=== PATIENT | male | born 1950 | race Caucasian/White ===

== ENCOUNTER 2016-07-23 04:22 | Inpatient (IN) | payer MEDICARE ==
[2016-07-23] VITALS (21 sets, daily range): BP systolic 86–133; BP diastolic 51–72; PULSE 64–89; RESP 12–57; TEMP 96.1–98.4; O2SAT 90–98; Ht 177.8 cm; Wt 70.2 kg
[~2016-07-23] VITALS: Ht 177.8 cm; Wt 70.2 kg
[~2016-07-23 04:22] MED LIST: ALBU1.252 AEROSOL; ALBU6.7H INH; ASPI-1085 PO; CHOL100018 PO; CLOR7.5T5 PO; FOLI1TAB15 PO; LACO50TA2 PO; OLOD4MIS2 INH; PHEN100C12 PO; RANI150T7 PO; TIOT4MIS5 ORAL INH; [UNRECOGNIZED DRUG - CODE] PO; [UNRECOGNIZED DRUG - CODE] PO
--- OUTSIDE RECORDS SUMMARY | 2016-07-23 04:27 | XMS REPORT | Continuity of Care Document ---
Author Author [facility] Organization [facility] Address Unknown Phone Unavailable Support Name Relationship Address Phone DANIELLE MOFFETT MD Caregiver [address] [place] [address] [place] [phone] Unavailable LAISHA RICHTER Next Of Kin [address], [place] [id number] Insurance Providers Guarantor TeresaRishi Address [address] [place] [address] Email DENIED Payer Medicare Policy Number [id number] Subscriber's Name Rishi Richter Relationship 18 Self Chief Complaint and Reason for Visit Chief Complaint Fever Reason for Visit Elevated Dilantin level Fever Seizure Pharyngitis, acute Problems Past Problems Medical Problem Onset Date Elevated Dilantin level Unknown Fever Unknown Pharyngitis, acute Unknown Seizure Unknown Medications Current Home Medications Medication Dose Units Route Directions Days Qty Instructions Start Date Albuterol Sulfate 1.25 Mg/3 Ml Vial.neb 1 Vial Aerosol Tx. Every 4 Hours as needed for Prn Orders 02/09/16 Albuterol Sulfate (Proventil Hfa 90 Mcg/Actuation) 200 Puff/6.7 G Inha 2 Puff Inhalation Every 6 Hours as needed for Shortness Of Air/Wheezing 02/09/16 Aspirin (Aspirin Ec) 81 Mg Tablet. 81 Mg Oral Daily 02/09/16 Calcium Carbonate 650 Mg Tablet 650 Mg Oral Twice A Day 02/09/16 Cholecalciferol (Vitamin D3) 1,000 Unit Tablet 2,000 Unit Oral Daily 02/09/16 Clorazepate Dipotassium 7.5 Mg Tablet 30 Mg Oral Three Times A Day 02/09/16 Folic Acid 1 Mg Tablet 1 Mg Oral Daily 02/09/16 Lacosamide (Vimpat) 50 Mg Tablet 100 Mg Oral Twice A Day 02/09/16 Lactose-Free Food (Boost Plus) 237 Ml Liquid 237 Ml Oral Twice A Day 02/09/16 Olodaterol Hcl (Striverdi Respimat) 4 Gm Mist.inhal 2 Puff Inhalation Daily 02/09/16 Phenytoin Sodium Extended 100 Mg Capsule 200 Mg Oral Twice A Day 02/09/16 Ranitidine Hcl 150 Mg Tablet 150 Mg Oral Twice A Day as needed for Acid Reflux 02/09/16 Tiotropium Kaplan (Spiriva Respimat) 4 Gm Mist.inhal 2 Puff Oral Inhalation Daily 02/09/16 Social History Query Response Start Date Stop Date Smoking Status Former smoker Hospital Discharge Instructions No hospital discharge instructions. Plan of Care Discharge Date 02/09/16 2:40pm Disposition 01 DISCHARGED HOME, SELF-CARE Condition at Discharge Left Without Being Seen Instructions/Education Provided Sore Throat DI for Fever (Symptom) -- Adult Prescriptions See Medication Section Additional Instructions/Education Hold your Dilantin for next [address] Dixon via phone today for follow up and Dilantin dosing instructions. May go to [facility] clinic in [place]. Take OTC 600mg of ibuprofen every 6-8 hours or 650mg of tylenol every 4 hours for fever. Drink 8 glasses of water daily to stay hydrated. Follow treatment plan. Care Plan and Goals Physician Care Plan Problem: Fever, pharyngitis, Dilantin level too high, seizure Goal: Follow up with primary care provider Instructions: Take medications and follow care plan as discussed/written Functional Status No functional status results. Allergies, Adverse Reactions, Alerts No known allergies. Immunizations No immunization records. Vital Signs Acute Vital Signs Vital Response Date/Time Temperature (Fahrenheit) 98.9 deg F (96.8 - 99.1) 02/09/2016 12:45pm Temperature (Calculated Celsius) 37.55911 degrees C (36.0 - 37.3) 02/09/2016 12:45pm Pulse Rate (adult) 80 bpm (60 - 100) 02/09/2016 3:25pm Respiratory Rate 20 breaths/min (10 - 20) 02/09/2016 3:25pm O2 Sat by Pulse Oximetry 93 % (90 - 100) 02/09/2016 3:25pm Oxygen Flow Rate 2.00 L/min 02/09/2016 3:25pm Blood Pressure 97/62 mm Hg 02/09/2016 3:25pm Height (Feet) 5 feet 02/09/2016 11:15am Height (Inches) 10.00 inches 02/09/2016 11:15am Weight (Kilograms) 65.900 kg 02/09/2016 11:15am Body Mass Index (BMI) 20.0 02/09/2016 11:15am Results Laboratory Results Test Name Result Units Flags Reference Collection Date/Time Result Date/ Time Comments Phenytoin (Dilantin) Level 34.8 UG/ML *H 10-02/09/2016 1:26pm 2015 1:50pm Group A Streptococcus Screen NEGATIVE NEGATIVE 02/09/2016 1:11pm 10/2015 2:00pm Strep culture confirmation to follow Microbiology Results Procedure Source Organism/Result Collection Date/Time Result Date/Time Result Status Group A Streptococcus Culture Throat CULTURE INITIATED - RESULTS PENDING 2:00pm 02/09/2016 2:01pm Preliminary Procedures No known history of procedures. Encounters Encounter Location Arrival/Admit Date Discharge/Depart Date Attending Provider Departed Emergency Room [facility] 02/09/16 11:09am 02/09/16 2: 40pm DANIELLE MOFFETT MD Recent Diagnosis
[2016-07-23] MEDS ORDERED: ALBUTEROL/IPRATROPIUM INHAL. 2.5mg-0.5mg/3ml Neb. AEROSOL ONE ×2 (04:30→05:15)
--- NOTE | 2016-07-23 04:36 | ERPDOC ---
Departure Disposition Decision Date: Jul 23, 2016 Disposition Decision Time: 05:30 Disposition: 02 TO [facility] Impression Impression Impression: Primary Impression: COPD exacerbation Additional Impression: Respiratory failure Chronicity: acute on chronic Respiratory failure complication: hypoxia Qualified Codes: J96.21 - Acute and chronic respiratory failure with hypoxia Severity: Severe Condition: Improved Seen By: Physician only Problems/Meds/Labs Reviewed?: Yes Medications reviewed and manag: Yes Follow up care ordered?: Yes Mental Status: Alert Critical Care Note Total Time (mins): 40 Critical Care Spent: [id number] care of pt, Reviewing test results, Discuss the case w/staff, Documenting the MR, Discussion w/ family/DPOA During this visit the pt was: Critically Ill, At Risk of Deterioration HPI - Dyspnea General Chief Complaint: Dyspnea/Respdistress Stated Complaint: DYSPNEA Time Seen by Provider: 04:29 Source: patient, family, EMS Exam Limitations: no limitations HPI - Dyspnea Initial Comments Patient awoke from sleep one hour ago with severe dyspnea. Patient has a history of severe COPD, is oxygen-dependent at 3 L, and is noticed increased sputum production for the past week. Patient try to give himself a breathing treatment at home, wasn't successful so his called EMS. Patient was found to be hypoxemic at 86% on 3 L. Patient was increased to 6 L by mask in addition to his 3 L binasal cannula and given 2 albuterol treatments in route. Also given 125 mg IV, and seemed to improve dramatically. Patient has no local physician, and doctors at the [facility] in [place]. His requested that he be brought to [facility]. Occurred At: home Onset/Timing: Rapid Duration: 1 hr Severity: severe Activities at Onset: sleep Prior Episodes/Possible Cause: occasional episodes Associated Symptoms: cough, shortness of breath, DENIES: chest pain, diaphoresis, fever/chills, headaches, loss of appetite, malaise, nausea/vomiting , rash, seizure, syncope, weakness Aspirin Treatment Today: unknown Hx of Similar Symptoms: Yes Allergies: Coded Allergies: No Known Allergies (Unverified , 02/09/16) Past History Past Medical History Respiratory: COPD GI: GERD Neurological: seizures Surgical History General: other Family History Family PMH: FOUND: other Social History Smoking Status: Former smoker Does patient use chewing tobac: No Second Hand Exposure: No Substance Use Type: does not use Alcohol Intake: none Marital Status: Household Members: spouse Record Review Pertinent history updated: Yes Review of Systems Constitutional Constitutional: DENIES: appetite decrease, appetite increase, chills, dizziness , fever, weakness ENMT Ears: DENIES: pain Hearing: DENIES: hearing loss, tinnitus Balance: DENIES: vertigo Mouth/Throat: DENIES: change in swallowing, change in voice, hoarsness, painful swallowing, sore throat Cardiovascular Cardiac: DENIES: chest pain, dyspnea on exertion Rhythm/Rate: DENIES: irregular beat, palpitations, tachycardia Vascular: DENIES: pedal edema Pulmonary Respiratory: cough, dyspnea, sputum, DENIES: exposure to TB, hyperventilation, last PPD, pleuritic chest pain, pneumonia hx, recent risky activities, tachypnea GI Upper Abdomen: DENIES: dysphagia, heartburn/indigestion, nausea, pain, vomiting Lower Abdomen: DENIES: blood in stool, constipation, diarrhea, pain General: DENIES: burning, dysuria, frequency, pain, urgency Musculoskeletal General: DENIES: cramps, joint pain, joint swelling, pain, weakness Integumentary Skin: DENIES: rash, sores Neurological General: DENIES: headache, numbness, tingling, vertigo, weakness Psychiatric Psychiatric: DENIES: anxiety, depression, nervousness Physical Exam General General Nourishment: well nourished, well developed, appears stated age, thin Distress Description Patient appears in severe respiratory distress, but is able to answer questions. General Body Habitus: disheveled Vitals and Pain First Documented Vital Signs Date Time Temp Pulse Resp B/P Pulse Ox O2 Delivery O2 Flow Rate FiO2 07/23/16 04:24 97.2 87 26 126/72 100 Mask 10.00 Weight: Kilograms: Height (feet): 5 Height (inches): 10.00 Triage Pain Scale: RN VS reviewed by Provider: Yes Normal Exams: Head: Normocephalic w/o trauma Eyes: Pupils are PERRLA w/ EOMI, No scleral icterus, irritation, or foreign bodies noted ENMT: No facial trauma, nasal exudates, pharyngeal erythema, or exudates are noted Neck: Full range of motion, without adenopathy, JVD, bruits or thyromegaly Abdomen: Bowel sounds positive, soft, non-tender, non-distended, no hepatosplenomegaly, masses or bruits noted Lymphatic: No lymphadenopathy, or lymphedema noted Musculoskeletal: No tenderness, or deformity noted, good range of motion, all extremities Integumentary: No rashes, hives, or bruising noted, hair and nails, without abnormality Neurologic: Patient is alert, and oriented, cranial nerves, motor/sensory/ cerebellar, exams w/o gross deficits, to observation Psychiatric: Patient exhibits, appropriate attention, emotion and affect Respiratory (brief) Respiratory: FOUND: equal bilaterally, symmetrical, wheezes, NOT FOUND: clear all mccurdy (course tight wheezes bilaterally with poor air movement), rales, spasm, tenderness Cardiovascular (brief) Cardiac: FOUND: regular rate, regular rhythm, NOT FOUND: click, gallop, murmur , pedal edema Capillary Refill: <2 sec Pulses: all distal extremities, equal, strong Progress Results/Orders Orders Procedure Category Date Status Time Iv Lock (Ed Only) EDM 07/23/16 Transmitted 04:29 Cbc W/Auto LAB 07/23/16 Complete Diff-Reflex Manual Cmp - Comprehensive LAB 07/23/16 Complete Metabolic Lactate - Lactic Acid LAB 07/23/16 Complete Procalcitonin LAB 07/23/16 Complete 04:29 Chest 1 View RAD 07/23/16 Taken EKG EKG 07/23/16 Taken Troponin I W LAB 07/23/16 Complete Hemolysis Index Lactate - Lactic Acid LAB 07/23/16 Logged 08:59 Albuterol/Ipratropium PHA 07/23/16 Complete (Duoneb) 04:30 Albuterol/Ipratropium PHA 07/23/16 Complete (Duoneb) 05:15 Blood Gas, Arterial - LAB 07/23/[address] In Facility: ED ADM 07/23/16 Transmitted 05:15 Measure Vital Signs WOOD 07/23/16 In Process 05:15 Notify Adm Physician WOOD 07/23/16 In Process In Am 05:15 Place In Facility As: ADMIT 07/23/16 Transmitted 05:13 Blood Glucose [facility] 07/23/16 In Process Assessment Bgm 05:13 Measure Intake And WOOD 07/23/16 In Process Output 05:13 Elevate Hob WOOD 07/23/16 In Process Monitor Pulse Oximetry WOOD 07/23/16 In Process 05:13 Manage Oxygen WOOD 07/23/16 In Process Administration 05:13 Incentive Spirometry RT 07/23/16 Logged 05:13 Morphine Sulfate PHA 07/23/16 Logged (Morphine) 05:15 Enoxaparin (Lovenox) PHA 07/23/16 Logged 09:00 Rt Consult RT 07/23/16 Logged 05:13 Consistent Carb 2000 DIET 07/23/16 Transmitted Calories Breakfast Activity As Tolerated WOOD 07/23/16 In Process 05:13 Metoclopramide PHA 07/23/16 Logged (Reglan Inj) 05:15 Ondansetron Inj PHA 07/23/16 Logged (Zofran) 05:15 Promethazine PHA 07/23/16 Logged (Phenergan) 05:15 Oxygen, Continuous RT 07/23/16 Logged 05:13 Manage Incentive WOOD 07/23/16 In Process Spirometer 16:00 Methylprednisolone PHA 07/23/16 Logged Sod Succ (Solu-Medrol 11:00 Levofloxacin PHA 07/23/16 Logged (Levaquin 750 Mg 05:30 Albuterol Sulfate PHA 07/23/16 Logged (Proventil 2.5 Mg/3 Ml 05:30 Normal Saline (Normal PHA 07/23/16 Logged Saline Iv) 05:30 Lactate - Lactic Acid LAB 07/23/16 Logged 10:00 Lab Results Laboratory Tests Test 07/23/16 04:33 White Blood Count 7.2T/MM3 Red Blood Count 4.90M/MM3 Hemoglobin 15.2GM/DL Hematocrit 44.7% Mean Corpuscular Volume 91.2UM3 Mean Corpuscular Hemoglobin 31.0UUG Mean Corpuscular Hemoglobin Concent 34.0GM/DL RDW Standard Deviation 43.9FL Platelet Count 211T/MM3 Mean Platelet Volume 8.9UM3 Immature Granulocyte % (Auto) 0.4% Neutrophils (%) (Auto) 56.0% Lymphocytes (%) (Auto) 33.8% Monocytes (%) (Auto) 9.2% Eosinophils (%) (Auto) 0.0% Basophils (%) (Auto) 0.6% Absolute Immature Granulocyte (auto 0.03T/MM3 Absolute Neutrophils (auto) 4.0T/MM3 Absolute Lymphocytes (auto) 2.4T/MM3 Absolute Monocytes (auto) 0.7T/MM3 Absolute Eosinophils (auto) 0.0T/MM3 Absolute Basophils (auto) 0.0T/MM3 Turbidity < 20 Sodium Level 145MEQ/L Potassium Level 4.4MEQ/L Chloride Level 104MEQ/L Carbon Dioxide Level 34MEQ/L Anion Gap 7MEQ/L Blood Urea Nitrogen 14.0MG/DL Creatinine 0.8MG/DL Glomerular Filtration Rate Calc 98 BUN/Creatinine Ratio 18RATIO Glucose Level 106MG/DL Calculated Osmolality 280MOSM/KG Calcium Level 9.4MG/DL Total Bilirubin 0.50MG/DL Icterus Index < 2 Aspartate Amino Transf (AST/SGOT) 29U/L Alanine Aminotransferase (ALT/SGPT) 42U/L Alkaline Phosphatase 130U/L Troponin I < 0.012ng/ml Total Protein 7.4G/DL Albumin 4.1G/DL Globulin 3.3G/DL Albumin/Globulin Ratio 1.2RATIO Plasma Lactate 2.4MMOL/L Procalcitonin < 0.05NG/ML Chemistry Specimen Hemolysis < 15 Medications Current ED Medications Albuterol/ Ipratropium (Duoneb) 6 ml O ONCE AEROSOL Last administered on 04:59; Start 07/23/16 at 04:30; Stop 07/23/16 at 04:31; Status DC Albuterol/ Ipratropium (Duoneb) 6 ml O ONCE AEROSOL Last administered on 05:10; Start 07/23/16 at 05:15; Stop 07/23/16 at 05:16; Status DC Morphine Sulfate (Morphine) 1-2 MG Q2H PRN IV PAIN; Start 07/23/16 at 05:15; Status UNV Enoxaparin Sodium (Lovenox) 40 mg DAILY SQ ; Start 07/23/16 at 09:00; Status UNV Metoclopramide HCl (REGLAN Inj) 5 mg Q6H PRN IV NAUSEA; Start 07/23/16 at 05:15 ; Status UNV Ondansetron HCl (Zofran) 4 mg Q6H PRN IV NAUSEA; Start 07/23/16 at 05:15; Status UNV Promethazine HCl (Phenergan) 12.5 mg Q6H PRN IV NAUSEA; Start 07/23/16 at 05:15 ; Status UNV Methylprednisolone Sodium Succinate (Solu-Medrol) 125 mg Q6H IV ; Start at 11:00; Status UNV Levofloxacin (LEVAQUIN 750 mg tablet) 750 mg Q24H PO ; Start 07/23/16 at 05:30; Status UNV Albuterol Sulfate 7.5 mg 7.5 mg Q2H PRN AEROSOL ; Start 07/23/16 at 05:30; Status UNV Sodium Chloride (Normal Saline IV) 1,000 ml @ 150 mls/hr Q6H40M IV ; Start at 05:30; Status UNV Progress Progress EKG by EMS shows significant artifact, but no STEMI. Patient given 2 additional DuoNeb nebs and is oxygenating well, but still has pursed lip breathing and decreased air movement EKG - normal sinus rhythm without ischemia, ectopy, or infarction CBC - N CMP - N Chest x-ray - bilateral hyperinflation Lactate - mildly elevated 2.4, consistent with stented hypoxemia Pro calcitonin - Troponin - normal Patient is much improved, but continues to have decreased air movement and pursed lip breathing. Patient given additional 2 duonebs in the ER Pt is admitted to Dr. Zendejas, CCU, ABG drawn in ER. MOON SHINE MD Jul 23, 2016 04:36
[2016-07-23 04:44] LABS: BASOPHILS % (AUTO) 0.6 % (0-2); HCT - HEMATOCRIT 44.7 % (41-53); HGB - HEMOGLOBIN 15.2 GM/DL (13.5-17.5); IMMATURE GRANULOCYTE # (AUTO) 0.03 T/MM3 (0.00-0.03); IMMATURE GRANULOCYTE % (AUTO) 0.4 % (0.0-0.5); LYMPHOCYTES # (AUTO) 2.4 T/MM3 (1-4.8); LYMPHOCYTES % (AUTO) 33.8 % (23-45); MEAN CORPUSCULAR VOLUME 91.2 UM3 (80-100); MEAN PLATELET VOLUME 8.9 UM3 (9.4-12.4); MONOCYTES # (AUTO) 0.7 T/MM3 (0-0.8); MONOCYTES % (AUTO) 9.2 % (0-9.0); WBC - WHITE BLOOD COUNT 7.2 T/MM3 (4.5-11.0)
--- NOTE | 2016-07-23 04:50 | NUR ---
PORTABLE CHEST XRAY
[2016-07-23 04:51] LABS: LACTATE - LACTIC ACID 2.4 MMOL/L (0.6-2.2)
[2016-07-23 04:52] LABS: ALBUMIN 4.1 G/DL (3.5-5.0); ALBUMIN/GLOBULIN RATIO 1.2 RATIO (1.1-2.2); ALKALINE PHOSPHATASE 130 U/L (38-126); ALT (SGPT) 42 U/L (21-72); ANION GAP 7 MEQ/L (5-15); AST (SGOT) 29 U/L (17-59); BUN/CREATININE RATIO 18 RATIO (6-26); CALCIUM 9.4 MG/DL (8.4-10.2); CHLORIDE 104 MEQ/L (98-107); CO2 - CARBON DIOXIDE 34 MEQ/L (22-30); CREATININE 0.8 MG/DL (0.8-1.5); GLOMERULAR FILTRATION RATE 98; GLUCOSE 106 MG/DL (75-110); POTASSIUM 4.4 MEQ/L (3.6-5); SODIUM 145 MEQ/L (134-144); TOTAL PROTEIN 7.4 G/DL (6.3-8.2)
[2016-07-23] MEDS ORDERED: OLOD4MIS2 INH (05:08)
[2016-07-23] MEDS ORDERED: METOCLOPRAMIDE 10mg/2ml INJECTION IV PRN (05:15)
[2016-07-23] MEDS ORDERED: MORPHINE SULFATE 2 MG SYRINGE IV PRN (05:15)
[2016-07-23] MEDS ORDERED: ONDANSETRON 4mg/2ml INJECTION IV PRN (05:15)
[2016-07-23] MEDS ORDERED: PROMETHAZINE 25 MG INJECTION IV PRN (05:15)
[2016-07-23] MEDS ORDERED: ALBUTEROL INH.SOLN. 2.5mg/3ml (0.083%) Neb. AEROSOL PRN ×2 (05:30→11:00)
--- NOTE | 2016-07-23 05:40 | NUR ---
Admit Pt admitted to CCU4 at this time via cart, accompanied by ED RN, Raysa. Pt able to transfer self from cart to bed. Arrived on 3L O2/NC. IVL. Pt very talkative. Denies pain. Pursed lip breathing noted. at bedside. VSS.
--- NOTE | 2016-07-23 05:40 | NUR ---
ADMIT CCU PT TRANSFERRED TO CCU VIA CART ON 3L/NC. PT INDEPENDENTLY TRANSFERRED FROM CART TO BED - STAND-BY ASSIST ONLY. AT SIDE.
[2016-07-23] MEDS: NORMAL SALINE 1,000 ML IV SCH ×3 (05:50→23:12)
--- OUTSIDE RECORDS SUMMARY | 2016-07-23 05:52 | XMS REPORT | Referral Summary ---
Author Author [facility] Organization [facility] Address Unknown Phone Unavailable Care Team Providers Care It Quality Assurance Analyst Name Role Phone Kizzy Mcdowell Primary Care Physician [phone] Encounter [facility] [id number] Date(s): 04/08/15 - 04/08/[address] [facility] [address] [facility] [address] [place], [place] [address] Discharge Diagnosis: Localization-related symptomatic epilepsy and epileptic syndromes with complex partial seizures, intractable, without status epilepticus Discharge Diagnosis: Status post VNS (vagus nerve stimulator) placement Discharge Disposition: 01-Home or Self Care Attending Physician: Hai Dixon MD Admitting Physician: Hai Dixon MD Vital Signs No data available for this section Problem List Condition Effective Dates Status Health Status Informant COPD (chronic Active patient obstructive pulmonary disease)(Confirmed) Oxygen Active patient deficiency(Confirmed ) Seizures(Confirmed) Active patient Tobacco Active patient user(Confirmed) Allergies, Adverse Reactions, Alerts No Known Allergies Medications acetaminophen 325-650 mg, Oral, q4hr, Pain Moderate (4-6), 0 Refill(s) Start Date: 07/09/14 Status: Ordered albuterol 1.25 mg/3 mL (0.042%) inhalation solution 3 mL, NEB, q4hr, 0 Refill(s) Start Date: 07/08/14 Status: Ordered aspirin 81 mg oral tablet 81 mg 1 tabs, Oral, Daily, # 30 tabs, 0 Refill(s) Start Date: 04/08/15 Status: Ordered clorazepate 7.5 mg oral tablet See Instructions, Take 4 tablets three times daily, # 360 tabs, 0 Refill(s), other reason (Rx) Start Date: 04/08/15 Stop Date: 04/11/15 Status: Ordered folic acid 1 mg oral tablet 1 mg 1 tabs, Oral, Daily, # 30 tabs, 0 Refill(s) Start Date: 04/08/15 Status: Ordered Foradil Aerolizer 12 mcg inhalation capsule 1 caps, Inhalation, q12hr, # 60 caps, 0 Refill(s) Start Date: 07/08/14 Status: Ordered Home Oxygen (DME) DME Item 2 liters, See Instructions, 0 Refill(s), Supply Start Date: 07/08/14 Status: Ordered phenytoin 100 mg oral capsule, extended release See Instructions, Take 2 capsules twice daily, # 120 caps, 0 Refill(s), other reason (Rx) Start Date: 04/08/15 Status: Ordered Vitamin D with Minerals oral tablet 1 tabs, Oral, Daily, # 30 tabs, 0 Refill(s) Start Date: 04/08/15 Status: Ordered Results No data available for this section Immunizations No data available for this section Procedures Procedure Date Related Diagnosis Body Site Insertion Stimulator Vagus Nerve1 07/09/14 rods to brain to tack seizures VNS battery 1auto-populated from documented surgical case Social History Social History Type Response Smoking Status Former smoker; Number of years: 531 1quit smoking -2014. Assessment and Plan Extracted from: Title: Office Visit Note Author: Hai Dixon MD Date: 04/08/15 Assessment/Plan 1.Localization-related symptomatic epilepsy and epileptic syndromes with complex partial seizures, intractable, without status epilepticus 2.Status post VNS (vagus nerve stimulator) placement Orders: clorazepate, See Instructions, Take 4 tablets three times daily, # 360 tabs, 0 Refill(s), other reason (Rx) phenytoin, See Instructions, Take 2 capsules twice daily, # 120 caps, 0 Refill (s), other reason (Rx) I have reviewed about25 pages of outside record and the available diagnostic studies. I have also reviewed and discussed the diagnosis, pathophysiology and treatment plan with the patient and his . The patient is here to evaluate for recurrent seizure activities associated with loss of consciousness. Seizure activities associated with loss of consciousness can be associated with injury or high morbidities. Unfortunately , Mr. Muro continues to have monthly seizures despite the fact that he has been tried on numerous seizure medication and also VNS. For his seizure treatment, I would recommend start him on lacosamide (Vimpat) and titrate up to 100 mg bid. Please check EKG before initiating lacosamide to rule out P-R prolongation. Other options for seizure treatment would include zonisamide, perampanel or eslicarbazepine. Recently, he was found to have elevated clorazepate level. Unfortunately, the patient became psychotic and developed anxiety and panic attacks while being weaned off from clorazepate. It would appear he had similar experience in the past about 1 year ago when he ran out of clorazepate. It is possible now he has developed dependence on clorazepate so he would develop psychiatric symptoms when clorazepate was weaned. I would recommend a slow wean of clorazepate, eg take away 1 tablet of 7.5 mg every 1-2 months or even slower at a rate of 3.75 mg every 1-2 months if needed. If he continues to have problem with psychosis and anxiety, may need to bridge him with temporary antipsychotic medication (eg. Seroquel), can consider Psychiatry consult forassistance in the choice of alternative antipsychotic or anxiolytic medication. His VNS was interrogated today. No changes were made. Below is a summary of the setting: Model: 105 Implant date: July 09, 2014 Total On time: 2359 hours Normal mode: Output current:0.75 mA Signal frequency: 30 Hz Pulse width: 130 usec Signal on time: 7 seconds Signal off time: 0.3 minutes Magnet mode: Magnet current: 1 mA Magnet on time: 500 seconds Magnet pulse width: 30 usec System diagnostic mode was performed and all responses were correct: yes Battery near end of life: no Lead impedance: ok In addition to above, following issues were also discussed: - Seizure safety education regarding loss of consciousness. I have also informed the patient the possibility of injury from loss of consciousness during a seizure. - Patient was educated that he should not be driving until seizure free for 6 months - Potential adverse effects of medications were discussed I'll see him back for follow up in 3 months. Addendum The patient was approved by the [place] to see me for a total of 3 visits (1 new and 2 follow by yves Dixon) Hai Plummer MD on April 08, 2015 15:09:24 SERVICE TECH/WELDER Extracted from: Title: Ambulatory Patient Education Author: Hai Dixon MD Date: 04/08/15 [facility] Epilepsy People with epilepsy have times when they shake and jerk uncontrollably ( seizures). This happens when there is a sudden change in brain function. Epilepsy may have many possible causes. Anything that disturbs the normal pattern of brain cell activity can lead to seizures. HOME CARE Follow your doctor's instructions about driving and safety during normal activities. Get enough sleep. Only take medicine as told by your doctor. Avoid things that you know can cause you to have seizures (triggers). Write down when your seizures happen and what you remember about each seizure. Write down anything you think may have caused the seizure to happen. Tell the people you live and work with that you have seizures. Make sure they know how to help you. They should: Cushion your head and body. Turn you on your side. Not restrain you. Not place anything inside your mouth. Call for local emergency medical help if there is any question about what has happened. Keep all follow-up visits with your doctor. This is very important. GET HELP IF: You get an infection or start to feel sick. You may have more seizures when you are sick. You are having seizures more often. Your seizure pattern is changing. GET HELP RIGHT AWAY IF: A seizure does not stop after a few seconds or minutes. A seizure causes you to have trouble breathing. A seizure gives you a very bad headache. A seizure makes you unable to speak or use a part of your body. Document Released: 02/17/2010 Document Revised: 02/10/2014 Document Reviewed: [facility] Patient Information 2015 [employer], [facility]. This information is not intended to replace advice given to you by your health care provider. Make sure you discuss any questions you have with your health care provider. No follow up information was provided.
--- OUTSIDE RECORDS SUMMARY | 2016-07-23 05:52 | XMS REPORT | Continuity of Care Document ---
Author Author Formerly [facility] Address Unknown Phone Unavailable Support Name Relationship Address Phone LAURIE OLMSTEAD DO Caregiver [address] [place] [address] LAISHA SHABAZZ Next Of Kin [address] [address] Insurance Providers Payer Name Policy Number Subscriber Name Relationship Medicare A And B [id number] Rishi Shabazz 18 Self / Same As Patient For Life [id number] Rishi Shabazz 18 Self / Same As Patient Advance Directives Directive Response Recorded Date/Time Advanced Directives Not applicable 10/08/15 1:56pm Chief Complaint and Reason for Visit Chief Complaint Laceration Reason for Visit Foreign body of finger of left hand Problems Active Problems Medical Problem Onset Date Status Bronchitis Unknown Acute COPD exacerbation ~05/17/2014 Acute Elevated LFTs ~05/17/2014 Acute Foreign body of finger of left hand Unknown Acute Seizure Unknown Acute Seizure disorder Unknown Chronic Medications Current Home Medications Medication Dose Units Route Directions Days/Qty Instructions Start Date Tiotropium [place] 18 Mcg 18 Mcg RESPIRATORY (INHALATION) As Needed 05/17/14 Budesonide/Formoterol Fumarate 10.2 Gm 10.2 Gm RESPIRATORY (INHALATION) As Needed 05/17/14 Phenytoin Sodium Extended 100 Mg 100 Mg ORAL Four Times Daily Clorazepate Dipotassium 15 Mg 15 Mg ORAL Twice A Day 05/17/14 Albuterol Sulf 20 Ml 20 Ml Hand Held Nebulizer As Needed 05/17/14 Aspirin 81 Mg 81 Mg ORAL Daily 06/26/15 Folic Acid 1 Mg 1 Mg ORAL Daily 06/26/15 Cholecalciferol (Vitamin D3) 2,000 Unit 2,000 Unit ORAL Daily Calcium Carbonate 650 Mg 650 Mg ORAL Daily 06/26/15 Past Home Medications Medication Directions Ordered Status Bisacodyl 5 Mg Tablet.dr, 5 Mg Oral Daily 05/17/14 Discontinued Polyethylene Glycol 3350 17 Gm Powd.pack, 17 Gm Oral As Needed 05/17/14 Discontinued Prednisone 20 Mg Tablet, 20 Mg Oral Daily 05/17/14 Discontinued Levofloxacin 500 Mg Tab, 500 Mg G Tube Daily 05/17/14 Discontinued Methylprednisolone 21 Tab/Pkt Tablet, 21 Tab Oral As Directed 06/26/15 Discontinued Doxycycline Monohydrate 100 Mg Capsule, 100 Mg Oral Twice A Day 06/26/15 Discontinued Social History Query Response Start Date Stop Date Smoking Status Former smoker Hospital Discharge Instructions No hospital discharge instructions. Plan of Care Discharge Date 10/08/15 2:35pm Disposition 01 HOME OR SELF-CARE Condition at Discharge Stable Instructions/Education Provided Soft Tissue Foreign Body (ED) Prescriptions See Medication Section Additional Instructions/Education Keep the wounds clean and dry and covered with a bandage for a few days, and watch for signs of infection. See your doctor next week if not improving. Some of your test results may not be complete prior to your leaving the Emergency Department. The Emergency Department is not authorized to give test results over the phone. Please contact the doctor's office listed in this packet of information for your final results. Follow up with your primary care physician or return to the Emergency Department for worsening or worrisome symptoms. * Emergency Department phone number: [phone], x [phone] MEDICAL RECORD If you need copies of your X-rays, call [phone]. If you need copies of your medical record, including lab results, a signed authorization for release of records will be required. A telephone call for release of Health Information is not allowed. BILLING Billing can sometimes be confusing and frustrating. To help avoid confusion in the future, please take a moment to acquaint yourself with the billing parties for services. SERVICE BILLING CONSTITUTION PARTY Emergency Room Services [facility] Patients will receive bills for services from the appropriate provider. If you have any questions about your [facility] bill, our staff will be happy to assist you. Please call [phone], and ask for the billing department. THANK YOU for choosing [facility] as your emergency care provider! Care Plan and Goals ~~Discharge Care Plan~~ Problem: Laceration repaired Goal: Wound is closed with edges lined up, and will heal without redness, drainage or signs of infection. Instructions: Keep wound clean and dry. Apply antibiotic ointment as directed. Follow physician discharge instructions. Keep wound covered if working in an unclean environment. Wear gloves if working with food in a work environment. Functional Status No functional status results. Allergies, Adverse Reactions, Alerts No known allergies. Immunizations Name Given Type Status Date Influenza Vaccine Received if Current 02/03/15 Historical Historical Vital Signs Acute Vital Signs Vital Response Date/Time Temperature (Fahrenheit) 97.3 10/08/2015 2:35pm Pulse 78 bpm 10/08/2015 2:35pm Respirations 18 10/08/2015 2:35pm Height 5 ft 11 in Weight 149 lb Body Mass Index 20.0 kg/m^2 Results No known relevant diagnostic tests, laboratory data and/or discharge summary. Procedures No known history of procedures. Encounters Encounter Location Arrival/Admit Date Discharge/Depart Date Attending Provider Departed Emergency Room [facility] 10/08/15 1:41pm 10/08/15 2:35pm LAURIE OLMSTEAD DO Recent Diagnosis
--- OUTSIDE RECORDS SUMMARY | 2016-07-23 05:52 | XMS REPORT | Referral Summary ---
Author Author [facility] Organization [facility] Address Unknown Phone Unavailable Care Team Providers Care Extrusion Operator Name Role Phone Kizzy Mcdowell Primary Care Physician [phone] Encounter VC Date(s): 05/23/16 - 05/23/[address] [facility] [address] [facility] [address] [place], [place] [address] Discharge Diagnosis: Localization-related symptomatic epilepsy and epileptic syndromes with complex partial seizures, intractable, without status epilepticus Discharge Diagnosis: S/P placement of VNS (vagus nerve stimulation) device Discharge Disposition: 01-Home or Self Care Attending Physician: Hai Dixon MD Admitting Physician: Hai Dixon MD Vital Signs Most recent to 1 oldest [Reference Range]: Blood Pressure 110/68 mmHg [90-140/60-90 mmHg] (05/23/16 9:36 AM) Problem List Condition Effective Dates Status Health Status Informant COPD (chronic Active patient obstructive pulmonary disease)(Confirmed) Oxygen Active patient deficiency(Confirmed ) Localization-related Active symptomatic epilepsy and epileptic syndromes with complex partial seizures, intractable, without status epilepticus(Confirme d) Morbid Active patient obesity(Confirmed) S/P placement of VNS Active (vagus nerve stimulation) device(Confirmed) Tobacco Active patient user(Confirmed) Allergies, Adverse Reactions, [...] 7.5 mg oral tablet See Instructions, Take 3 tablets by mouth every morning, 3 tablets every afternoon and 3.5 tablets every evening., # 285 tabs, 1 Refill(s) Start Date: 05/23/16 Stop Date: 07/21/16 Status: Ordered folic acid 1 mg oral tablet 1 mg 1 tabs, Oral, Daily, # 30 tabs, 0 Refill(s) Start Date: 04/08/15 Status: Ordered Foradil Aerolizer 12 mcg inhalation capsule 1 caps, Inhalation, q12hr, # 60 caps, 0 Refill(s) Start Date: 07/08/14 Status: Ordered Home Oxygen (DME) DME Item 2 liters, See Instructions, 0 Refill(s), Supply Start Date: 07/08/14 Status: Ordered lacosamide 100 mg oral tablet 100 mg 1 tabs, Oral, BID, Take in conjunction with 50mg tablet twice daily., # 60 tabs, 5 Refill(s) Start Date: 01/25/16 Status: Ordered phenytoin 100 mg oral capsule, extended release See Instructions, Take 2 capsules twice daily, # 120 caps, 3 Refill(s) Start Date: 01/25/16 Status: Ordered Vitamin D with Minerals oral [...] Visit Note Author: Hai Dixon MD Date: 05/23/16 Assessment/Plan 1.Localization-related symptomatic epilepsy and epileptic syndromes with complex partial seizures, intractable, without status epilepticus - doing well, no seizure since last clinic visit -his clorazepate was still elevated, we will continue clorazepate taper. He is currently on clorazepate 7.5 mg tablets(3-3-4 tablets). We will go down to 3 - 3 - 3.5 tablets - continue phenytoin andVimpat at current dose - if he has recurrent seizures, we will increase Vimpat to 125 mg bid - hedoes not drive 2.S/P placement of VNS (vagus nerve stimulation) device VNS was interrogated today, no adjustment was made: Model: 105 Implant date: July 09, 2014 Total On time:5909 hours Normal mode: Output current:0.75 mA Signal frequency: 30 Hz Pulse width: 130 usec Signal on time: 7 seconds Signal off time: 0.3 minutes Magnet mode: Magnet current: 1 mA Magnet on time: 500 seconds Magnet pulse width: 30 usec System diagnostic mode was performed and all responses were correct: yes Battery near end of life: no Lead impedance: ok Follow up in 4 months.
--- OUTSIDE RECORDS SUMMARY | 2016-07-23 05:52 | XMS REPORT | Referral Summary ---
Author Organization Unknown Address Unknown Phone Unavailable Encounter VC Date(s): 07/09/14 - 07/09/14 [facility] [address] [place] [address] [phone] Discharge Disposition: Home or Self Care Attending Physician: Drew Vargas MD Admitting Physician: Drew Vargas MD Vital Signs Most recent to 1 oldest [Reference Range]: Temperature Skin 36.2 degC [36-37 degC] (07/09/14 1:05 PM) Peripheral Pulse 78 bpm Rate [60-100 bpm] (07/09/14 1:30 PM) Heart Rate Monitored 69 bpm [60-100 bpm] (07/09/14 1:00 PM) Respiratory Rate 16 br/min [14-20 br/min] (07/09/14 1:30 PM) Systolic Blood 94 mmHg Pressure [90-140 (07/09/14 1:30 PM) mmHg] Diastolic Blood 64 mmHg Pressure [60-90 (07/09/14 1:30 PM) mmHg] Mean Arterial 78 mmHg Pressure, Cuff (07/09/14 11:30 AM) Most recent to 1 oldest [Reference Range]: SpO2 96 % (07/09/14 1:30 PM) Problem List Condition Effective Dates Status Health [...] 0 Refill(s) Start Date: 07/08/14 Status: Ordered clorazepate 15 mg oral tablet 2 tablets, Oral, TID, 0 Refill(s) Start Date: 07/08/14 Status: Ordered Dilantin 100 mg oral capsule, extended release 3 caps, Oral, Bedtime (once a day), 0 Refill(s) Start Date: 07/08/14 Status: Ordered Dilantin 100 mg oral capsule, extended release 2 caps, Oral, BID, 2 TABLETS AM, 3 TABLETS PM, 0 Refill(s) Special Instructions: 2 TABLETS AM, 3 TABLETS PM Start Date: 07/08/14 Status: Ordered Foradil Aerolizer 12 mcg inhalation capsule 1 caps, Inhalation, q12hr, # 60 caps, 0 Refill(s) Start Date: 07/08/14 Status: Ordered Home Oxygen (DME) DME Item 2 liters, See Instructions, 0 Refill(s), Supply Special Instructions: 2 liters Start Date: 07/08/14 Status: Ordered Results Chemistry Most recent to 1 oldest [Reference Range]: Sodium Lvl [136-144 138 mEq/L mEq/L] (07/09/14 7:48 AM) Potassium Lvl 4.3 mEq/L [3.6-5.1 mEq/L] (07/09/14 7:48 AM) Chloride [99-109 100 mEq/L mEq/L] (07/09/14 7:48 AM) CO2 [22-32 mEq/L] 33 mEq/L *HI* (07/09/14 7:48 AM) AGAP [3-20] 5 (07/09/14 7:48 AM) BUN [4-20 mg/dL] 19 mg/dL (07/09/14 7:48 AM) Glucose Lvl [70-100 89 mg/dL mg/dL] (07/09/14 7:48 AM) Creatinine Lvl 0.78 mg/dL [0.64-1.27 mg/dL] (07/09/14 7:48 AM) eGFR [>60] >60 1 (07/09/14 7:48 AM) Calcium Lvl 8.7 mg/dL [8.6-10.0 mg/dL] (07/09/14 7:48 AM) Blood Glucose, 93 mg/dL Capillary [70-100 (07/09/14 7:01 AM) mg/dL] 1Result Comment: Multiply eGFR results by 1.21 for race. Immunizations No data available for this section Procedures Procedure Date Related Diagnosis Body Site Insertion Stimulator Vagus Nerve1 07/09/14 rods to brain to tack seizures VNS battery 1auto-populated from documented surgical case Social History Social History Type Response Smoking Status Former smoker; Number of years: 531 1quit smoking . Assessment and Plan No data available for this section
--- OUTSIDE RECORDS SUMMARY | 2016-07-23 05:52 | XMS REPORT | Referral Summary ---
Author Author [facility] Organization [facility] Address Unknown Phone Unavailable Care Team Providers Care Chemical Tester Name Role Phone Kizzy Mcdowell Primary Care Physician [phone] Encounter Date(s): 08/18/15 - 08/18/[address] [facility] [address] [facility] [address] [place], [place] [address] Discharge Diagnosis: Localization-related symptomatic epilepsy and epileptic syndromes with complex partial seizures, intractable, without status epilepticus Discharge Diagnosis: S/P placement of VNS (vagus nerve stimulation) device Discharge Disposition: 01-Home or Self Care Attending Physician: Hai Dixon MD Admitting Physician: Hai Dixon MD Vital Signs Most recent to 1 oldest [Reference Range]: Blood Pressure 146/68 mmHg [90-140/60-90 mmHg] *HI* (08/18/15 10:59 AM) Problem List Condition Effective Dates Status Health Status Informant COPD (chronic Active patient obstructive pulmonary disease)(Confirmed) Oxygen Active patient deficiency(Confirmed ) Localization-related Active symptomatic epilepsy and epileptic syndromes with complex partial seizures, intractable, without status epilepticus(Confirme d) S/P placement of VNS Active (vagus nerve [...] 0 Refill(s) Start Date: 04/08/15 Status: Ordered folic acid 1 mg oral [...] Visit Note Author: Hai Dixon MD Date: 08/18/15 Assessment/Plan 1.Localization-related symptomatic epilepsy and epileptic syndromes with complex partial seizures, intractable, without status epilepticus Doing well, only had one seizure since last appointment, which is much improved compared to before. Vimpat was started, currently taking 100 mg bid. Would recommend increase Vimpat to 125 mg bid given his recent seizure. Please also repeat another EKG to make sure there is no prolonged [place] interval. PCP can consider increasing Vimpat to 150 mg bid if he has additional seizure. Please continue phenytoin at current dose. Please continue clorazepate taper by 0.5 tablet per month. May consider psychiatry consult for temporary alternative anti-psychotic medicationif patient develops psychosis. Seizure safety education 2.S/P placement of VNS (vagus nerve stimulation) device VNS was interrogated today, no adjustment was made: VNS setting: Model: 105 Implant date: July 09, 2014 Total On time:3498 hours Normal mode: Output current:0.75 mA Signal frequency: 30 Hz Pulse width: 130 usec Signal on time: 7 seconds Signal off time: 0.3 minutes Magnet mode: Magnet current: 1 mA Magnet on time: 500 seconds Magnet pulse width: 30 usec System diagnostic mode was performed and all responses were correct: yes Battery near end of life: no Lead impedance: ok Follow up in 2-3 months.
--- OUTSIDE RECORDS SUMMARY | 2016-07-23 05:52 | XMS REPORT | Referral Summary ---
Author Author [facility] Organization [facility] Address Unknown Phone Unavailable Care Team Providers Care Aeronautical Research Engineer Name Role Phone Kizzy Mcdowell Primary Care Physician [phone] Encounter Date(s): 01/10/16 - 01/10/[address] [facility] [address] [facility] [address] [place], [place] [address] Discharge Diagnosis: Localization-related symptomatic epilepsy and epileptic syndromes with complex partial seizures, intractable, without status epilepticus Discharge Diagnosis: S/P placement of VNS (vagus nerve stimulation) device Discharge Disposition: 01-Home or Self Care Attending Physician: Hai Dixon MD Admitting Physician: Hai Dixon MD Vital Signs Most recent to 1 oldest [Reference Range]: Blood Pressure 130/80 mmHg [90-140/60-90 mmHg] (01/10/16 2:25 PM) Problem List Condition Effective Dates Status [...] tablet 100 mg 1 tabs, Oral, BID, # 60 tabs, 4 Refill(s) Start Date: 10/31/15 Status: Ordered phenytoin 100 mg oral capsule, extended release See Instructions, Take 2 capsules twice daily, # 120 caps, 0 Refill(s), other reason (Rx) Start Date: 04/08/15 Status: Ordered Vimpat 50 mg oral tablet See Instructions, Take 0.5 tablet twice a day, in conjuction with the 100 mg tablet, # 30 tabs, 0 Refill(s) Start Date: 01/10/16 Status: Ordered Vitamin D with Minerals oral tablet 1 tabs, Oral, Daily, # 30 tabs, 0 Refill(s) Start Date: 04/08/15 Status: Ordered Results Hematology Most recent to 1 oldest [Reference Range]: WBC [4.8-10.8 5.6 10*3/uL 10*3/uL] (01/10/16 3:49 PM) RBC [4.60-6.20] 4.96 (01/10/16 3:49 PM) Hgb [14.0-18.0 15.4 gm/dL gm/dL] (01/10/16 3:49 PM) Hct [42.0-52.0 %] 44.2 % (01/10/16 3:49 PM) MCV [82.0-99.0 fL] 89.1 fL (01/10/16 3:49 PM) MCH [27.0-32.0 pg] 31.0 pg (01/10/16 3:49 PM) MCHC [32.0-36.0 34.8 gm/dL gm/dL] (01/10/16 3:49 PM) RDW [11.5-14.5 %] 13.2 % (01/10/16 3:49 PM) Platelet [150-400 235 10*3/uL 10*3/uL] (01/10/16 3:49 PM) MPV [8.8-14.8 fL] 9.2 fL (01/10/16 3:49 PM) Chemistry Most recent to 1 oldest [Reference Range]: Sodium Lvl [135-144 140 mEq/L mEq/L] (01/10/16 3:49 PM) Potassium Lvl 4.5 mEq/L [3.5-5.2 mEq/L] (01/10/16 3:49 PM) Chloride [99-111 101 mEq/L mEq/L] (01/10/16 3:49 PM) CO2 [23-31 mEq/L] 33 mEq/L *HI* (01/10/16 3:49 PM) AGAP [3-20] 6 (01/10/16 3:49 PM) BUN [8-26 mg/dL] 17 mg/dL (01/10/16 3:49 PM) Glucose Lvl [70-99 66 mg/dL mg/dL] *LOW* (01/10/16 3:49 PM) Creatinine Lvl 0.82 mg/dL [0.72-1.25 mg/dL] (01/10/16 3:49 PM) eGFR [>60 mL/min] >60 mL/min 1 (01/10/16 3:49 PM) Calcium Lvl 9.4 mg/dL [8.9-10.5 mg/dL] (01/10/16 3:49 PM) Albumin Lvl [3.4-4.8 4.2 gm/dL gm/dL] (01/10/16 3:49 PM) Total Protein 7.0 gm/dL [6.0-7.6 gm/dL] (01/10/16 3:49 PM) ALT [0-55 U/L] 42 U/L (01/10/16 3:49 PM) AST [5-34 U/L] 32 U/L (01/10/16 3:49 PM) Alk Phos [40-150 124 U/L U/L] (01/10/16 3:49 PM) Bili Total [0.2-1.2 0.3 mg/dL mg/dL] (01/10/16 3:49 PM) Bili Direct [0.0-0.5 0.2 mg/dL mg/dL] (01/10/16 3:49 PM) Bili Indirect 0.1 mg/dL [0.0-1.0 mg/dL] (01/10/16 3:49 PM) 1Result Comment: Multiply eGFR results by 1.21 [...] Visit Note Author: Hai Dixon MD Date: 01/10/16 Assessment/Plan 1.Localization-related symptomatic epilepsy and epileptic syndromes with complex partial seizures, intractable, without status epilepticus - still has ongoing seizures - would recommend increasing Vimpat from 100 mg bid to 125 mg bid - would recommend continue phenytoin and clorazepate at current dose for now - will check clorazepate level since it was high in the past - will also check CBC, BMP, LFT since he is on seizure medication - I have discussed with the patient and family that it would be best if his PCP from the [facility] can write the prescription for his seizure medications. Recently, I received V[facility] the [facility]. I signed the form last week and they still haven't received the medication this week. It would be a lot easier for internal physician to write the prescription to avoid delay.Delaying in getting his seizure medications can potentially increase his risk of seizure recurrence and also possibly psychosis from clorazepate withdrawal. It is not ideal for outside physician to write prescription since we do not have access to the [facility] electronic medical system. The prescription will undergo several layers of [facility] authorization, which could delay care for the patient. Ordered: Basic Metabolic Panel CBC Hemogram Clorazepate Level-[place] Hepatic Function Panel 2.S/P placement of VNS (vagus nerve stimulation) device VNS was interrogated today, no adjustment was made: VNS setting: Model: 105 Implant date: July 09, 2014 Total On time:4752 hours Normal mode: Output current:0.75 mA Signal frequency: 30 Hz Pulse width: 130 usec Signal on time: 7 seconds Signal off time: 0.3 minutes Magnet mode: Magnet current: 1 mA Magnet on time: 500 seconds Magnet pulse width: 30 usec System diagnostic mode was performed and all responses were correct: yes Battery near end of life: no Lead impedance: ok Ordered: Basic Metabolic Panel CBC Hemogram Hepatic Function Panel Follow up in 3-4 months Addendum Clarification: currently, he is on clorazepate, 3 tablets in AM, 3 tablets in the by Zack, afternoon and 4 tablets in PM Hai Plummer MD on January 10, 2016 15:39:42 CDT
--- OUTSIDE RECORDS SUMMARY | 2016-07-23 05:52 | XMS REPORT | Continuity of Care Document ---
Author Author [facility] Organization [facility] Address Unknown Phone Unavailable Allergies Active Description Code Type Severity Reaction Onset Reported/Identified Relationship to Patient Clinical Status Yes No Known Allergies NKMA N/A N/A 07/08/2014 Yes No Known Drug Allergies [id number] Drug Allergy Unknown N/ A 10/08/2015 Medications Problems Date Dx Coded Attending Type Code Diagnosis Diagnosed By 05/17/2014 VENU POLK DO Ot 345.90 05/17/2014 VENU POLK DO Ot 491.21 05/17/2014 VENU POLK DO Ot 780.79 05/17/2014 VENU POLK DO Ot 790.6 06/26/2015 JULY WRIGHT MD P Ot G40.909 EPILEPSY, UNSP, NOT INTRACTABLE, WITHOUT 06/26/2015 JULY WRIGHT MD P Ot J44.9 CHRONIC OBSTRUCTIVE PULMONARY DISEASE , U 06/26/2015 JULY WRIGHT MD P Ot R56.9 UNSPECIFIED CONVULSIONS 06/26/2015 JULY WRIGHT MD P Ot Z79.899 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 06/26/2015 JULY WRIGHT MD P Ot Z87.891 PERSONAL HISTORY OF NICOTINE DEPENDENCE 07/28/2015 JULY WRIGHT MD P Ot G40.802 07/28/2015 JULY WRIGHT MD P Ot M54.2 07/28/2015 JULY WRIGHT MD P Ot R51 07/28/2015 JULY WRIGHT MD P Ot R53.1 08/19/2015 JULY WRIGHT MD P Ot G40.802 OTHER EPILEPSY, NOT INTRACTABLE, WITHOUT 08/19/2015 JULY WRIGHT MD P Ot M54.2 CERVICALGIA 08/19/2015 JULY WRIGHT MD P Ot R51 HEADACHE 08/19/2015 JULY WRIGHT MD P Ot R53.1 WEAKNESS 10/08/2015 MADISON DO, LAURIE Destini Ot S61.241A PNCTR W FOREIGN BODY OF L IDX FNGR W/ O D 10/08/2015 OLMSTEAD DO, LAURIE Georges Ot W21.89XA STRIKING AGAINST OR STRUCK BY [employer] SPORTS 10/08/2015 MADISON DO, LAURIE Destini Ot Y92.007 [place] OF [facility] NON-[facility] RESI 10/08/2015 OLMSTEAD DO, LAURIE Destini Ot Y93.89 ACTIVITY, OTHER SPECIFIED 10/13/2015 OLMSTEAD DO, LAURIE Georges Ot S61.241A PNCTR W FOREIGN BODY OF L IDX FNGR W/ O D 10/13/2015 OLMSTEAD DO, LAURIE Georges Ot W21.89XA STRIKING AGAINST OR STRUCK BY [employer] 10/13/2015 OLMSTEAD DO, LAURIE Georges Ot Y92.007 [place] Y[place] OF [facility] RESI 10/13/2015 MADISON DO, LAURIE Destini Ot Y93.89 ACTIVITY, OTHER SPECIFIED 10/15/2015 MADISON DO, LAURIE Destini Ot S61.241A PNCTR W FOREIGN BODY OF L IDX FNGR W/ O D 10/15/2015 MADISON DO, LAURIE Geroges Ot W21.89XA STRIKING AGAINST OR STRUCK BY [facility] [employer] 10/15/2015 M[place] DO, LAURIE Georges Ot Y92.007 [facility] 10/15/2015 OLMSTEAD DO, LAURIE Georges Ot Y93.89 ACTIVITY, OTHER SPECIFIED Procedures Results Test Result Range Clorazepate - 01/10/16 15:49 Clorazepate See Comment NA Encounters ACCT No. Visit Date/Time Discharge Status Pt. Type Provider Facility Loc./Unit Complaint [id number] 05/23/2016 08:48:00 2016 23:59:00 DIS Outpatient Hai Dixon [facility] N SF Epil Seizure Follow Up [id number] 01/10/2016 14:20:00 2015 23:59:00 DIS Outpatient Hai Dixon [facility] N [facility] Epil 3 MO FU [id number] 08/18/2015 10:42:00 2015 23:59:00 DIS Outpatient Hai Dixon [facility] N Epil follow up [id number] 04/08/2015 13:16:00 ACT Outpatient Hai Dixon [facility] N Epil SEIZURES
--- OUTSIDE RECORDS SUMMARY | 2016-07-23 05:52 | XMS REPORT | Continuity of Care Document ---
Author Author [facility] Organization [facility] Address Unknown Phone Unavailable Support Name Relationship Address Phone JAMTIMOTHYA Destini GARNER Caregiver [address] [place] [address] JULY WRIGHT MD Caregiver [address] [place] [address] LAISHA MURO Next Of Kin [address] [place] [address] Insurance Providers Payer Name Policy Number Subscriber Name Relationship Medicare A And B [id number] Rishi Muro 18 Self / Same As Patient For Life [id number] Rishi Muro 18 Self / Same As Patient Chief Complaint and Reason for Visit Chief Complaint Malaise Reason for Visit [id number] Seizure disorder [id number] Problems Medical Problems Problem Onset Date Status Elevated LFTs Unknown Active Seizure disorder Unknown Active COPD exacerbation Unknown Active Medications Medication Dose Route Sig Days/Qty Instructions Order Date Discontinued Date Status Tiotropium [place] 18 Mcg RESPIRATORY (INHALATION) NEEDED Active Budesonide/Formoterol Fumarate 10.2 Gm RESPIRATORY (INHALATION) NEEDED 05/17/14 Active Phenytoin Sodium Extended 100 Mg ORAL FOUR TIMES DAILY 05/17/14 Active Bisacodyl 5 Mg ORAL DAILY 05/17/14 Active Clorazepate Dipotassium 15 Mg ORAL TWICE A DAY 05/17/14 Active Albuterol Sulf 20 Ml HHN NEEDED 05/17/14 Active Polyethylene Glycol 3350 17 Gm ORAL NEEDED 05/17/14 Active Prednisone 20 Mg ORAL DAILY 5 Qty 05/17/14 Active Levofloxacin 500 Mg GT DAILY 10 Qty 05/17/14 Active Social History No social history. Hospital Discharge Instructions No hospital discharge instructions. Plan of Care Discharge Date 05/17/14 9:24pm Disposition 01 HOME OR SELF-CARE Condition at Discharge Stable Instructions/Education Provided Emphysema (ED) Prescriptions See Medications Section Additional Instructions/Education [facility] Return to ER as needed. Some of your test results may not [...] worrisome symptoms. * Emergency Department phone number: [phone], x [phone]* MEDICAL RECORD If you need copies of your X-rays, call [phone]. If you need copies of [...] the billing parties for services. SERVICE BILLING LIBERTARIAN Emergency Room Services [facility] Physician Services [facility] X-[facility] Patients will receive bills for services from the appropriate provider. If you have any questions about your [facility] bill, our staff will be happy to assist you. Please call [phone], and ask for the billing department. THANK YOU for choosing [facility] as your emergency care provider! Functional Status No functional status results. Allergies, Adverse Reactions, Alerts Allergen Type Severity Reaction Status Last Updated No Known Drug Allergies Active 05/17/14 Immunizations No immunization records. Vital Signs Acute Vital Signs Vital Response Date/Time Temperature (Fahrenheit) 98.0 Pulse 78 bpm Respirations 22 Height 5 ft 11 in Weight 155 lb Body Mass Index 21.0 kg/m^2 Results Test Source Date Result Interp. Ref. Range Comments Troponin I May 17, 2014 6:30pm < 0.012 ng/mL 0.010-0.080 Urine Collection Type May 17, 2014 8:15pm Clean catch Urine collection method Clean Catch Urine Leukocyte Esterase May 17, 2014 8:15pm Negative Negative Urine collection method Clean Catch Urine Urobilinogen May 17, 2014 8:15pm 0.2 mg/dL 0.2-1.0 Urine collection method Clean Catch Urine Bilirubin May 17, 2014 8:15pm Negative Negative Urine collection method Clean Catch Urine Nitrite May 17, 2014 8:15pm Negative Negative Urine collection method Clean Catch Urine Ketones May 17, 2014 8:15pm Negative Negative Urine collection method Clean Catch Urine Blood May 17, 2014 8:15pm Negative Negative Urine collection method Clean Catch Urine Glucose (UA) May 17, 2014 8:15pm Negative Negative Urine collection method Clean Catch Urine Protein May 17, 2014 8:15pm Negative Negative Urine collection method Clean Catch Urine Specific [place] May 17, 2014 8:15pm 1.015 1.005-1.030 Urine collection method Clean Catch Urine pH May 17, 2014 8:15pm 7.0 5.0 - 8.0 Urine collection method Clean Catch Urine Clarity May 17, 2014 8:15pm Slightly cloudy Urine collection method Clean Catch Urine Color May 17, 2014 8:15pm Yellow Urine collection method Clean Catch Albumin/Globulin Ratio May 17, 2014 6:30pm 1.354 N 1.1-1.8 Albumin May 17, 2014 6:30pm 4.2 G/DL N 3.4-5.0 Total Protein May 17, 2014 6:30pm 7.3 G/DL N 6.4-8.5 Alanine Aminotransferase (ALT/SGPT) May 17, 2014 6:30pm 93 U/L H 30- 65 Aspartate Amino Transf (AST/SGOT) May 17, 2014 6:30pm 57 U/L H 15- 37 Alkaline Phosphatase May 17, 2014 6:30pm 79 U/L N 38-126 Total Bilirubin May 17, 2014 6:30pm 0.1 MG/DL N 0.1-1.0 Calcium/Ionized Calcium Ratio May 17, 2014 6:30pm 4.1 mg/dL N 3.8- 4.6 Calcium Level May 17, 2014 6:30pm 9.4 MG/DL N 8.8-10.8 Calculated Osmolality May 17, 2014 6:30pm 275 MOSM/L L 280-300 Glucose Level May 17, 2014 6:30pm 98 mg/dL N 70-110 Estimated GFR (Non- May 17, 2014 6:30pm 129.5 Estimat Glomerular Filtration Rate May 17, 2014 6:30pm 156.7 BUN/Creatinine Ratio May 17, 2014 6:30pm 16 N 10-20 Creatinine May 17, 2014 6:30pm 0.63 mg/dL L 0.8-1.5 Blood Urea Nitrogen May 17, 2014 6:30pm 10 MG/DL N 7-18 Anion Gap May 17, 2014 6:30pm 13.5 MEQ/L N 3-15 Carbon Dioxide Level May 17, 2014 6:30pm 39 MMOL/L H 22-29 Chloride Level May 17, 2014 6:30pm 95 mmol/L L 98-108 Potassium Level May 17, 2014 6:30pm 4.2 mmol/L N 3.5-5.1 Sodium Level May 17, 2014 6:30pm 143 MMOL/L N 135-150 Whole Blood Lactic Acid May 17, 2014 6:30pm 1.0 mmol/L N 0.7-2.1 Basophils # (Auto) May 17, 2014 6:30pm 0.1 10^3uL Eosinophils # (Auto) May 17, 2014 6:30pm 0.0 10^3uL Monocytes # (Auto) May 17, 2014 6:30pm 0.9 X10^3 Lymphocytes # (Auto) May 17, 2014 6:30pm 2.5 X10^3 Neutrophils # (Auto) May 17, 2014 6:30pm 4.9 X10^3 Basophils (%) (Auto) May 17, 2014 6:30pm 1 % N 0-2 Eosinophils (%) (Auto) May 17, 2014 6:30pm 0 % N 0-4 Monocytes (%) (Auto) May 17, 2014 6:30pm 11 % N 3-11 Lymphocytes (%) (Auto) May 17, 2014 6:30pm 29 % N 20-46 Neutrophils (%) (Auto) May 17, 2014 6:30pm 59 % N 51-67 Mean Platelet Volume May 17, 2014 6:30pm 9.3 FL N 6.0-9.5 Platelet Count May 17, 2014 6:30pm 221 10^3uL N 150-450 Red Cell Distribution Width May 17, 2014 6:30pm 13.1 % N 11.8-15.6 Mean Corpuscular Hemoglobin Concent May 17, 2014 6:30pm 33.6 g/dL N 31.0-37.0 Mean Corpuscular Hemoglobin May 17, 2014 6:30pm 30.0 PG N 26.0-34.0 Mean Corpuscular Volume May 17, 2014 6:30pm 89 FL N 80-100 Hematocrit May 17, 2014 6:30pm 49.70 % N 39.00-50.00 Hemoglobin May 17, 2014 6:30pm 16.7 g/dL N 13.5-17.0 Red Blood Count May 17, 2014 6:30pm 5.56 10^6uL H 4.50-5.50 White Blood Count May 17, 2014 6:30pm 8.37 10^3uL N 4.0-11.0 Procedures No known history of procedures. Encounters Encounter Location Date/Time Departed Emergency Room [facility] 05/17/14 5:19pm Recent Diagnosis
[2016-07-23] MEDS: LEVOFLOXACIN 750 MG TABLET PO SCH (06:21)
[2016-07-23] MEDS ORDERED: RANITIDINE 150 MG TABLET PO PRN (06:30)
--- NOTE | 2016-07-23 06:33 | HPPDOC ---
NELA ZENDEJAS MD 07/23/16 0629: HPI - Adult Date DATE: 07/23/16 TIME: 06:25 General Chief Complaint: Increasingly short of air History of Present Illness very pleasant 64-year-old [place] [employer] which he was disabled, he is 100 % service disabled status and does get some of his care at [facility] [place]. He woke early this morning severely short of breath. He's had increasing production of sputum over the past 5-6 days. At baseline he typically uses 3 L of oxygen to sleep with. They called emergency services and he is satting 80% on room air. He was placed on 6 L and then on a facemask. He received Solu- Medrol and 2 nebulized bronchodilator treatments and Lasix. He was able to speak at all because of shortness of breath at their evaluation. Finally after the fourth treatment in the emergency room he is doing better. However he was still having some. He has improved from this. He has had increased phlegm in his throat and lungs, is found extremely hard to walk around because of shortness of breath. He denies any fever or denies any chest pain denies any increased swelling in his legs. He had tried some nebulized bronchodilators at home didn't help. He does have a wheelchair, and he is actually needed use of the past few days typically doesn't Past Medical History Past Medical History COPD, history of seizures, GERD Surgical History Patient's Surgical History: and some sort of implanted device that helps him with seizures, he is calling and defibrillator, was placed via [facility] in 2016. Current Medications Home Meds Reported Medications Olodaterol HCl (Striverdi Respimat) 4 Gm Mist.inhal, 2 PUFF INH DAILY 07/23/16 Tiotropium [place] (Spiriva Respimat) 4 Gm Mist.inhal, 2 PUFF ORAL INH DAILY 02/09/16 Ranitidine HCl (Ranitidine HCl) 150 Mg Tablet, 150 MG PO BID Y for ACID REFLUX 02/09/16 Phenytoin Sodium Extended (Phenytoin Sodium Extended) 100 Mg Capsule, 200 MG PO BID 02/09/16 Olodaterol HCl (Striverdi Respimat) 4 Gm Mist.inhal, 2 PUFF INH DAILY 02/09/16 Lactose-Free Food (Boost Plus) 237 Ml Liquid, 237 ML PO BID 02/09/16 Lacosamide (Vimpat) 50 Mg Tablet, 100 MG PO BID 02/09/16 Folic Acid (Folic Acid) 1 Mg Tablet, 1 MG PO DAILY 02/09/16 Clorazepate Dipotassium (Clorazepate Dipotassium) 7.5 Mg Tablet, 30 MG PO TID 02/09/16 Cholecalciferol (Vitamin D3) 1,000 Unit Tablet, 2000 UNIT PO DAILY 02/09/16 Calcium Carbonate (Calcium Carbonate) 650 Mg Tablet, 650 MG PO BID 02/09/16 Aspirin *EC* (Aspirin EC) 81 Mg Tablet.dr, 81 MG PO DAILY 02/09/16 Albuterol Sulfate (Albuterol Sulfate) 1.25 Mg/3 Ml Vial.neb, 1 VIAL AEROSOL Q4HR Y for PRN ORDERS 02/09/16 Albuterol Sulfate (Proventil HFA 90 mcg/actuation) 200 Puff/6.7 G Inha, 2 PUFF INH Q6H Y for SHORTNESS OF AIR/WHEEZING 02/09/16 Allergies: Coded Allergies: No Known Allergies (Unverified , 02/09/16) Family History Family History: nc basd on age Social History Smoking Status: Former smoker Does patient use chewing tobac: No Second Hand Exposure: No Substance Use Type: does not use Alcohol Intake: none Marital Status: Household Members: spouse Advance Directives: Yes DPOA for Healthcare Only (Lilliam Shabazz, ) Review of Systems All Other Systems All Other Systems: Reviewed (remainder of 10-point ROS Neg.) Physical Exam General General Nourishment: thin General Body Habitus: disheveled Vital Signs Vital Signs Date Time Temp Pulse Resp B/P Pulse Ox O2 Delivery O2 Flow Rate FiO2 07/23/16 06:00 89 24 07/23/16 05:40 97.2 112/60 96 Nasal Cannula 3.00 Height (Feet): 5 Height (Inches): 10.00 Eyes Brief: FOUND: EOMI, PERRL Respiratory Brief: FOUND: equal bilaterally, wheezes Cardiovascular (brief) Cardiac Brief: FOUND: regular rate, regular rhythm, NOT FOUND: pedal edema Abdomen (brief) Abdominal Brief: FOUND: BS normo active x4, soft, NOT FOUND: tender Neurologic RN Documented GCS Eye Opening: Verbal: Motor: Total: Psychiatric (brief) FOUND: alert, oriented Laboratory Laboratory Tests Test 07/23/16 04:33 07/23/16 05:30 07/23/16 06:02 White Blood Count 7.2T/MM3 Red Blood Count 4.90M/MM3 Hemoglobin 15.2GM/DL Hematocrit 44.7% Mean Corpuscular Volume 91.2UM3 Mean Corpuscular Hemoglobin 31.0UUG Mean Corpuscular Hemoglobin Concent 34.0GM/DL RDW Standard Deviation 43.9FL Platelet Count 211T/MM3 Mean Platelet Volume 8.9UM3 Immature Granulocyte % (Auto) 0.4% Neutrophils (%) (Auto) 56.0% Lymphocytes (%) (Auto) 33.8% Monocytes (%) (Auto) 9.2% Eosinophils (%) (Auto) 0.0% Basophils (%) (Auto) 0.6% Absolute Immature Granulocyte (auto 0.03T/MM3 Absolute Neutrophils (auto) 4.0T/MM3 Absolute Lymphocytes (auto) 2.4T/MM3 Absolute Monocytes (auto) 0.7T/MM3 Absolute Eosinophils (auto) 0.0T/MM3 Absolute Basophils (auto) 0.0T/MM3 Turbidity < 20 Sodium Level 145MEQ/L Potassium Level 4.4MEQ/L Chloride Level 104MEQ/L Carbon Dioxide Level 34MEQ/L Anion Gap 7MEQ/L Blood Urea Nitrogen 14.0MG/DL Creatinine 0.8MG/DL Glomerular Filtration Rate Calc 98 BUN/Creatinine Ratio 18RATIO Glucose Level 106MG/DL Calculated Osmolality 280MOSM/KG Calcium Level 9.4MG/DL Total Bilirubin 0.50MG/DL Icterus Index < 2 Aspartate Amino Transf (AST/SGOT) 29U/L Alanine Aminotransferase (ALT/SGPT) 42U/L Alkaline Phosphatase 130U/L Troponin I < 0.012ng/ml Total Protein 7.4G/DL Albumin 4.1G/DL Globulin 3.3G/DL Albumin/Globulin Ratio 1.2RATIO Plasma Lactate 2.4MMOL/L Procalcitonin < 0.05NG/ML Chemistry Specimen Hemolysis < 15 Arterial Blood pH 7.340 Arterial Blood Partial Pressure CO2 63MMHG Arterial Blood pO2 at Patient Temp 119MMHG Arterial Blood HCO3 34MEQ/L Arterial Blood Total CO2 35.9MEQ/L Arterial Blood Oxygen Saturation 98.0% Arterial Blood Base Excess 6.3MMOL/L Oxygen Delivery Method (LAB) Nasal cannula,liters Blood Gas Oxygen Liter Flow 3 Blood Gas Oxygen Percent Given Blood Gas Vent Rate Blood Gas Tidal Volume ML Glucometer 130mg/dL Assessment & Plan Problems: (1) Acute respiratory failure with hypoxemia Status: Acute Assessment & Plan: Secondary to COPD exacerbation. Steroids and antibiotics ordered as noted below. (2) Chronic hypercapnic respiratory failure Status: Chronic Assessment & Plan: his pH is normal at this time, appears to be compensating. (3) Acute exacerbation of chronic obstructive pulmonary disease (COPD) Status: Acute Assessment & Plan: ordered continued Solu-Medrol along with a dose of Levaquin. Nebulized bronchodilators, continue home T ectropion. (4) Elevated lactic acid level Status: Acute (5) Epilepsy Status: Chronic Assessment & Plan: Continue his home medications, Code Status Full Code Hospital Course Summary Disclaimer The hospital course summary below is not to be considered part of the above Progress Note. DORA YEAGER MD 07/23/16 1455: HPI - Adult General Chief Complaint: dyspnea History of Present Illness Mr. Shabazz is a 64-year-old male who describes increasing exertional dyspnea for a couple of months. He has known underlying COPD and is chronically managed on Spiriva and a LABA. Over the past week has had increased sputum production ( white) and rhinorrhea. No one else at home has been ill. 24 hours prior to hospitalization he described feeling hot and cold alternately but denies having fever. He awoke from sleep about 3 AM this morning acutely dyspneic and unable to breathe. He attempted to self administer breathing treatment with no relief and EMS was activated by his . When they arrived the patient was in a tripod position, pale, diaphoretic, and unable to speak. He was described as being in extreme respiratory distress with absent breath sounds. He was treated with 2 [id number]-sj-vham breathing treatments and 125 mg of Solu-Medrol prior to transfer her to the emergency room. Oxygen saturation was initially 86% on 3 L supplemental oxygen. Additional breathing treatments were administered in the emergency room and chest x-ray revealed no acute cardiopulmonary process and bilateral wheezing was described on examination. He was subsequently admitted for see his management of COPD exacerbation to the ICU. Patient reports increased use of rescue inhaler in the week prior to hospitalization. He denied preceding chest pain, palpitations, or edema. At the time of my evaluation in the ICU this morning he was breathing fairly comfortably in lying flat in bed. Past history, social history, family history, and review of systems as noted by Dr. Zendejas with the following additions: Patient reports having a brain surgery many years ago that was related to surgery seizures but can't identify the nature of the procedure otherwise. He underwent implantation of a cranial nerve stimulator pulse generator in July [address] Hai Dixon at [facility]. He discontinued tobacco in June 2015 after smoking 1-2 packs per day for 51 years. Father of unknown type of cancer. Comprehensive review of systems is negative outside of acute symptoms except patient reporting some minor tinnitus intermittently. Past Medical History Current Medications Home Meds Reported Medications Olodaterol HCl (Striverdi Respimat) 4 Gm Mist.inhal, 2 PUFF INH DAILY 07/23/16 Tiotropium [place] (Spiriva Respimat) 4 Gm Mist.inhal, 2 PUFF ORAL INH DAILY 02/09/16 Ranitidine HCl (Ranitidine HCl) 150 Mg Tablet, 150 MG PO BID Y for ACID REFLUX 02/09/16 Phenytoin Sodium Extended (Phenytoin Sodium Extended) 100 Mg Capsule, 200 MG PO BID 02/09/16 Olodaterol HCl (Striverdi Respimat) 4 Gm Mist.inhal, 2 PUFF INH DAILY 02/09/16 Lactose-Free Food (Boost Plus) 237 Ml Liquid, 237 ML PO BID 02/09/16 Lacosamide (Vimpat) 50 Mg Tablet, 100 MG PO BID 02/09/16 Folic Acid (Folic Acid) 1 Mg Tablet, 1 MG PO DAILY 02/09/16 Clorazepate Dipotassium (Clorazepate Dipotassium) 7.5 Mg Tablet, 30 MG PO TID 02/09/16 Cholecalciferol (Vitamin D3) 1,000 Unit Tablet, 2000 UNIT PO DAILY 02/09/16 Calcium Carbonate (Calcium Carbonate) 650 Mg Tablet, 650 MG PO BID 02/09/16 Aspirin *EC* (Aspirin EC) 81 Mg Tablet.dr, 81 MG PO DAILY 02/09/16 Albuterol Sulfate (Albuterol Sulfate) 1.25 Mg/3 Ml Vial.neb, 1 VIAL AEROSOL Q4HR Y for PRN ORDERS 02/09/16 Albuterol Sulfate (Proventil HFA 90 mcg/actuation) 200 Puff/6.7 G Inha, 2 PUFF INH Q6H Y for SHORTNESS OF AIR/WHEEZING 02/09/16 Allergies: Coded Allergies: No Known Allergies (Unverified , 02/09/16) Assessment & Plan Problems: (1) Acute and chronic respiratory failure with hypoxia Status: Acute (2) Acute exacerbation of chronic obstructive pulmonary disease (COPD) Status: Acute Assessment & Plan: ordered continued Solu-Medrol along with a dose of Levaquin. Nebulized bronchodilators, continue home T ectropion. (3) Elevated lactic acid level Status: Acute (4) Chronic hypercapnic respiratory failure Status: Chronic Assessment & Plan: his pH is normal at this time, appears to be compensating. (5) Epilepsy Status: Chronic Assessment & Plan: Continue his home medications, Assessment EXAM General-97.2, 112/60, 94% on 3 L this morning. Resting comfortably supine, NAD, alert HEENT-PERRLA, EOMI, conjunctiva clear, sclera anicteric, conjugate gaze, oropharynx clear, membranes slightly dry time of exam, neck supple without adenopathy Lungs-diminished breath sounds throughout, wheezing not present at time of exam , respirations nonlabored and patient speaking in sentences Cardiac-regular rhythm, S1-S2 Abd-soft, nontender, bowel sounds present Ext-without edema Skin-without rash Neuro-cranial nerves II through XII intact, motor tone and power normal, no tremors, sensation intact to light touch 4 extremities Psych-calm, cooperative Dr. Zendejas's note reviewed, patient interviewed and examined. Acute COPD exacerbation with hypoxia superimposed on chronic hypercarbic/ hypoxic respiratory failure. Clinically improving with treatment initiated in the emergency room and continued overnight. Continue IV steroids, breathing treatments, and Levaquin. Preceding cough and nasal symptoms for one week-respiratory viral panel to be obtained. Sputum culture to be obtained as well. Transfer out of ICU at this time. Plan/Intensity of Service Outpatient records reviewed regarding epilepsy, chest x-ray reviewed by myself, admission records and EMS report reviewed, laboratory data reviewed. Discussed with nursing. Hospital Course Summary Hospital Course Summary Acute COPD exacerbation with hypoxia superimposed on chronic hypercarbic/ hypoxic respiratory failure. Clinically improving with treatment initiated in the emergency room and continued overnight. Continue IV steroids, breathing treatments, and Levaquin. Preceding cough and nasal symptoms for one week-respiratory viral panel to be obtained. Sputum culture to be obtained as well. Transfer out of ICU at this time. NELA ZENDEJAS MD Jul 23, 2016 06:29 DORA YEAGER MD Jul 23, 2016 14:55
[2016-07-23] MEDS: TIOTROPIUM 18mcg/cap HANDIHALER ORAL INH SCH ×2 (07:33→19:08)
--- NOTE | 2016-07-23 08:05 | DI ---
Indication: ITS.REASON: severe dyspnea PROCEDURE: CHEST 1 VIEW: Encounter: Initial Comparison: None Findings: Severe emphysema and hyperinflation. No consolidative pneumonia, pleural effusion or pneumothorax. Heart size and mediastinal contours are within normal limits. Electronic stimulator type device projecting over the left upper chest. Impression: No acute cardiopulmonary disease. .
[2016-07-23] MEDS: ENOXAPARIN 40 MG/0.4 ML INJECTION SQ SCH (08:37)
[2016-07-23] MEDS ORDERED: OLODATEROL INH SCH (09:00)
[2016-07-23] MEDS ORDERED: OLODATEROL HCL INH SCH (09:00)
[2016-07-23] MEDS ORDERED: LACTOSE FREE FOOD PO SCH (09:00)
[2016-07-23] MEDS: CHOLECALCIFEROL 1,000 UNIT TABLET PO SCH (09:20)
[2016-07-23] MEDS: CALCIUM CARBONATE 600 MG TABLET PO SCH ×2 (09:20→20:53)
[2016-07-23] MEDS: FOLIC ACID 1 MG TABLET PO SCH (09:21)
[2016-07-23] MEDS: LACOSAMIDE 100 MG TABLET PO SCH ×2 (09:21→20:50)
[2016-07-23] MEDS: PHENYTOIN 100 MG PO SCH ×2 (09:22→20:53)
[2016-07-23] MEDS: ASPIRIN *EC* 81mg TABLET PO SCH (09:23)
[2016-07-23] MEDS: ALBUTEROL/IPRATROPIUM INHAL. 2.5mg-0.5mg/3ml Neb. AEROSOL SCH ×3 (11:02→20:34)
--- NOTE | 2016-07-23 15:00 | NUR ---
SUMMARY Patient has slept well between meals. Appetite good. Voids well per urinal. SOA w/ activity. Good sats on 3l/nc.
--- NOTE | 2016-07-23 17:10 | NUR ---
TRANSFER TO 137 PER W/C WITHOUT DIFFICULTY. WITH PT. ON O2 3L/NC, OXIMETRY, TELEMETRY.
--- NOTE | 2016-07-23 17:10 | NUR ---
TRANSFER TO MEDICAL VSS. 3L NC. PATIENT SLIGHTLY SOA FROM TRANSFER. STAND PIVOT FROM CHAIR TO BED INDEPENDENTLY. NS INFUSING. PRESENT. PATIENT A&O X3.
[2016-07-23] MEDS ORDERED: CLOR7.5T5 PO (17:41)
[2016-07-23] MEDS: CLORAZEPATE 7.5 MG PO SCH ×2 (17:54→23:11)
--- NOTE | 2016-07-23 17:55 | NUR ---
UNSCHEDULED CLORAZEPATE ADMINISTRATION PATIENT TAKES CLORAZEPATE TID AT HOME AND HAS NOT HAD ANY DOSES TODAY. PATIENT WILL RECEIVE ONE DOSE LATER THIS EVENING (2300) BUT WANTS TO TAKE HIS AFTERNOON DOSE NOW. 3 TABLETS GIVEN PER ORDERS.
--- NOTE | 2016-07-23 19:19 | NUR ---
SHIFT SUMMARY VSS. 3L NC. DENIES PAIN. GOOD APPETITE. NS INFUSING AT 75CC/HR. IN ROOM. DENIES SOA WHILE IN BED. CONTINUES TO BE SOA WITH ACTIVITY.
[2016-07-23] MEDS ORDERED: CLORAZEPATE 7.5 MG PO SCH (21:00)
[2016-07-24] VITALS (12 sets, daily range): BP systolic 106–136; BP diastolic 68–78; PULSE 75–82; RESP 16–24; TEMP 97.7–98.3; O2SAT 88–96
[2016-07-24 04:53] LABS: HCT - HEMATOCRIT 39.4 % (41-53); HGB - HEMOGLOBIN 13.4 GM/DL (13.5-17.5); MEAN CORPUSCULAR VOLUME 91.2 UM3 (80-100); MEAN PLATELET VOLUME 9.2 UM3 (9.4-12.4); RED BLOOD COUNT 4.32 M/MM3 (4.50-5.90); WBC - WHITE BLOOD COUNT 7.7 T/MM3 (4.5-11.0)
[2016-07-24 05:12] LABS: ALBUMIN 3.4 G/DL (3.5-5.0); ANION GAP 5 MEQ/L (5-15); BUN/CREATININE RATIO 21 RATIO (6-26); CALCIUM 9.1 MG/DL (8.4-10.2); CHLORIDE 106 MEQ/L (98-107); CO2 - CARBON DIOXIDE 31 MEQ/L (22-30); CREATININE 0.8 MG/DL (0.8-1.5); GLOMERULAR FILTRATION RATE 98; GLUCOSE 149 MG/DL (75-110); PHOSPHORUS 3.2 MG/DL (2.5-4.5); POTASSIUM 4.2 MEQ/L (3.6-5); SODIUM 142 MEQ/L (134-144)
[2016-07-24] MEDS: LEVOFLOXACIN 750 MG TABLET PO SCH (05:22)
--- NOTE | 2016-07-24 06:11 | NUR ---
summary PT SLEEPING AT THE MOMENT. HAS BEEN UP SEVERAL TIMES TO USE THE BATHROOM. PT IS ONE PERSON ASSIST WITH AMBULATION. PT HAS SOB WITH AMBULATION AND COUGHS A LOT. DENIED ANY PAIN. EDUCATED ABOUT CALL LIGHT USE AND PT SAFETY. PT IS ALERT AND ORIENTED. ON O2 VIA NASAL CANULA. TOLERATING IV FLUIDS WELL.
[2016-07-24 06:51] LABS: LYMPHOCYTES # (MANUAL) 1.5 T/MM3 (1-4.8); NEUTROPHILS #(MANUAL)-ABSOLUTE 6.2 T/MM3 (1.8-7.7); TOTAL CELLS COUNTED 100 %
[2016-07-24] MEDS: ALBUTEROL/IPRATROPIUM INHAL. 2.5mg-0.5mg/3ml Neb. AEROSOL SCH ×4 (07:05→19:50)
[2016-07-24] MEDS: CLORAZEPATE 7.5 MG PO SCH ×3 (09:00→21:00)
[2016-07-24] MEDS: ASPIRIN *EC* 81mg TABLET PO SCH (09:39)
[2016-07-24] MEDS: CHOLECALCIFEROL 1,000 UNIT TABLET PO SCH (09:39)
[2016-07-24] MEDS: LACOSAMIDE 100 MG TABLET PO SCH ×2 (09:39→21:36)
[2016-07-24] MEDS: ENOXAPARIN 40 MG/0.4 ML INJECTION SQ SCH (09:39)
[2016-07-24] MEDS: PHENYTOIN 100 MG PO SCH ×2 (09:39→21:35)
[2016-07-24] MEDS: FOLIC ACID 1 MG TABLET PO SCH (09:39)
[2016-07-24] MEDS: CALCIUM CARBONATE 600 MG TABLET PO SCH ×2 (09:39→21:35)
--- NOTE | 2016-07-24 10:28 | NUR ---
CM IN TO VISIT PATIENT, HE IS A&O. IS AT THE BEDSIDE. PATIENT PLANS TO RETURN HOME WHERE HE LIVES AT [facility] WITH HIS . STATES THAT SHE IS HIS PRIMARY CAREGIVER AND [facility] IN THE HOME WITH BATHING. PATIENT HAS HOME OXYGEN NOW THROUGH [facility] C[facility], PHONE NUMBER [phone]. AT THIS TIME THERE ISN'T ANY DISCHARGE NEEDS TO BE COORDINATED. CM CONTACT INFORMATION GIVEN. Addendum: 07/24/16 at 1032 by PETRONA GARRETT RN Amended: Links added.
--- NOTE | 2016-07-24 10:33 | NUR ---
CM LACE SCORE IS 10 OF TODAY, WILL FOLLOW.
[2016-07-24] MEDS: TIOTROPIUM 18mcg/cap HANDIHALER ORAL INH SCH (11:56)
[2016-07-24] MEDS ORDERED: INSULIN LISPRO 100 UNIT/ML SQ PRN (12:30)
--- NOTE | 2016-07-24 12:31 | PNPDOC ---
ATIF MAN 07/24/16 1216: Subjective Date DATE: 07/24/16 TIME: 12:08 Subjective Mr. Shabazz is seen today in follow up for his COPD exacerbation. He is seen in his room while finishing a breathing treatment. He is able to speak in complete sentences and reports that he is feeling much better. He admits to continued dyspnea with exertion such as ambulation to the bathroom but denies any dyspnea at rest. He remains on 4L NC with a pulse ox at 95% - baseline home oxygen at 2L at rest and 3L with exertion. He denies any pain, chest pain , abdominal pain, nausea, vomiting or dysuria but does state that he does not like "all the shots" referring to the start of his IV and his Lovenox injections. His appetite is good though he admits he is not a big fan of the hospital food. He has not had a BM since admission but relates that to not eating as much as he is used to. Nursing notes were reviewed. Overall, he is feeling much better and making gains. On exam, he is sitting up in bed, finishing his breathing treatment. No cough or respiratory distress noted. He is able to speak in complete sentences without difficulty. Cardiac exam reveals regular rate and rhythm and lung sounds are diminished bilaterally without rhonchi or wheezing. Abdomen is soft , nontender with active bowel sounds. 2+ pedal pulses bilaterally without edema. N/V intact bilaterally. Labs today showed - WBC 7.7, new mild anemia with hemoglobin at 13.4, platelets 202. BMP unremarkable with sodium 142, potassium 4.2, CO2 improved at 31, BUN 17, SCr 0.8 and hyperglycemia at 149 - most likely secondary to steroid effect. Lactate trending down at 2.1 from 2.4 on admission. Sputum culture showed moderate gram + cocci and rods with few gram - cocci and rods and few WBC. Objective Vital Signs Vital signs Vital Signs Date Time Temp Pulse Resp B/P Pulse Ox O2 Delivery O2 Flow Rate FiO2 07/24/16 11:37 98.3 79 24 109/74 96 Nasal Cannula 4.00 Telemetry Rhythm: Sinus Rhythm Height (Feet): 5 Height (Inches): 10.00 Weight (Kilograms): 71.100 General General Appearance: Alert, Orientated x 3, Cooperative, No Acute Distress Eyes (Brief) Eyes: FOUND: PERRL, NOT FOUND: scleral icterus ENMT (Brief) ENMT: FOUND: mucosa moist Neck (Brief) Neck: FOUND: midline, NOT FOUND: nuchal rigidity, tracheal deviation Respiratory (Brief) Respiratory: FOUND: symmetrical, NOT FOUND: rales, wheezes Comments diminished bilaterally Cardiovascular (Brief) Cardiac: FOUND: regular rate, regular rhythm, NOT FOUND: pedal edema Comments diminished heart sounds Abdomen (Brief) Abdominal: FOUND: BS normo active x4, soft, NOT FOUND: distended, tender Extremities (Brief) Extremity : Side: Bilateral Extremity: leg Extremity Finding: NOT FOUND: deformity, edema Lymphatic (Brief) Lymphatic: NOT FOUND: lymphedema Musculoskeletal (Brief) Musculoskeletal: FOUND: extremities move equally, NOT FOUND: deformity, loss of motion Integumentary (Brief) Integumentary: FOUND: dry, pink, warm Comments afebrile Neurologic (Brief) Neurological: FOUND: cranial 2-12 intact, NOT FOUND: facial droop Psychiatric (Brief) Psychiatric: FOUND: alert, attentive, normal affect, oriented Comments very pleasant Laboratory Laboratory Laboratory Tests 07/23/16 04:33 07/24/16 04:19 Laboratory Tests 07/23/16 04:33 07/24/16 04:19 Microbiology Microbiology Microbiology Date/Time Source Procedure Growth Status 07/24/16 05:43 Sputum Expectorated Sputum Gram Stain - Final Resulted 07/24/16 05:43 Sputum Expectorated Sputum Sputum Culture - Preliminary CULTURE INITIATED - RESULTS PENDING Resulted Assessment & Plan Problems: (1) Acute and chronic respiratory failure with hypoxia Status: Acute (2) Acute exacerbation of chronic obstructive pulmonary disease (COPD) Status: Acute Assessment & Plan: ordered continued Solu-Medrol along with a dose of Levaquin. Nebulized bronchodilators, continue home T ectropion. (3) Elevated lactic acid level Status: Acute (4) Chronic hypercapnic respiratory failure Status: Chronic Assessment & Plan: his pH is normal at this time, appears to be compensating. (5) Epilepsy Status: Chronic Assessment & Plan: Continue his home medications, Plan/Intensity of Service 07/24/16: [place]. Assessment/Plan: Acute exacerbation of COPD and acute/chronic respiratory failure with hypoxia: * Overall, patient appears to be improving slowly. Persistent dyspnea with exertion. * Continue Levaquin for antimicrobial coverage of pulmonary pathogens. * Continue Solu-Medrol for pulmonary inflammation. May consider changing to oral prednisone as efficacy is similar. Will discuss with Dr. Edwards. * Continue breathing treatments for dyspnea. * Consider ambulatory pulse ox prior to discharge to ensure adequate oxygen supplementation at home. * Sputum culture - monitor sensitivities and adjust therapies as indicated. GRAM STAIN Final 07/24/16-814 RESULT MODERATE GRAM POSITIVE COCCI IN CLUSTERS MODERATE GRAM POSITIVE RODS FEW GRAM POSITIVE COCCI IN PAIRS FEW GRAM NEGATIVE RODS FEW GRAM NEGATIVE COCCI MODERATE EPITHELIAL CELLS FEW WHITE BLOOD CELLS Elevated lactic acid: * Trending down - 2.4 on admission - improved to 2.1 today. Chronic hypercapnic respiratory failure: * Continue to monitor closely. Epilepsy: * Continue home treatments and monitor closely for signs of seizures. Anemia: * New on 07/24/16 - mild with hemoglobin at 13.4. Patient asymptomatic. Continue to monitor closely. * Recheck CBC in AM to monitor blood counts. Hyperglycemia: * Most likely secondary to steroid effect. Monitor BGMs and sliding scale insulin as indicated. * Recheck BMP in AM to monitor electrolytes and renal function. Oxygen dependency-chronic: * Home base line use at 2L day/night and 3L with exertion. * Continue oxygen supplementation and wean to baseline as able. Code Status Full Code Hospital Course Summary Disclaimer The hospital course summary below is not to be considered part of the above Progress Note. Hospital Course Summary Acute COPD exacerbation with hypoxia superimposed on chronic hypercarbic/ hypoxic respiratory failure. Clinically improving with treatment initiated in the emergency room and continued overnight. Continue IV steroids, breathing treatments, and Levaquin. Preceding cough and nasal symptoms for one week-respiratory viral panel to be obtained. Sputum culture to be obtained as well. Transfer out of ICU at this time. 07/24/16: Lanre. Assessment/Plan: Acute exacerbation of COPD and acute/chronic respiratory failure with hypoxia: * Overall, patient appears to be improving slowly. Persistent dyspnea with exertion. * Continue Levaquin for antimicrobial coverage of pulmonary pathogens. * Continue Solu-Medrol for pulmonary inflammation. May consider changing to oral prednisone as efficacy is similar. Will discuss with Dr. Edwards. * Continue breathing treatments for dyspnea. * Consider ambulatory pulse ox prior to discharge to ensure adequate oxygen supplementation at home. * Sputum culture - monitor sensitivities and adjust therapies as indicated. GRAM STAIN Final 07/24/16-814 RESULT MODERATE GRAM POSITIVE COCCI IN CLUSTERS MODERATE GRAM POSITIVE RODS FEW GRAM POSITIVE COCCI IN PAIRS FEW GRAM NEGATIVE RODS FEW GRAM NEGATIVE COCCI MODERATE EPITHELIAL CELLS FEW WHITE BLOOD CELLS Elevated lactic acid: * Trending down - 2.4 on admission - improved to 2.1 today. Chronic hypercapnic respiratory failure: * Continue to monitor closely. Epilepsy: * Continue home treatments and monitor closely for signs of seizures. Anemia: * New on 07/24/16 - mild with hemoglobin at 13.4. Patient asymptomatic. Continue to monitor closely. * Recheck CBC in AM to monitor blood counts. Hyperglycemia: * Most likely secondary to steroid effect. Monitor BGMs and sliding scale insulin as indicated. * Recheck BMP in AM to monitor electrolytes and renal function. Oxygen dependency-chronic: * Home base line use at 2L day/night and 3L with exertion. * Continue oxygen supplementation and wean to baseline as able. DORA EDWARDS MD 07/24/16 6337: Assessment & Plan Assessment I have independently evaluated and examined this patient. I reviewed the chart, the patient's history, and the PA's documented findings as above. We discussed and formulated the assessment and plan as above with additions as below: Mr. Shabazz reports that his breathing has improved when he is resting but he continues to have exertional dyspnea. Walking to and from the bathroom is as far as he can go currently. His appetite is good. He told nurses earlier that he thought he might have a seizure and used his nerve stimulator to abort the event. The patient is alert and appears much more comfortable than he did yesterday. Air flow is good with coarse expiratory sounds throughout but no wheezing. Cardiac exam regular. Results of sputum culture noted. Continue current management, convert to oral steroids in the morning. PT/OT. Suspect patient would benefit from outpatient pulmonary rehabilitation if available in his home community. IV fluids discontinued due to patient complaints of polyuria, mild drop in hemoglobin consistent with hydration. Please note that lactic acid of 2.1 was yesterday morning. ATIF MAN Jul 24, 2016 12:16 DORA EDWARDS MD Jul 24, 2016 16:37
--- NOTE | 2016-07-24 14:50 | NUR ---
DWIGHTA PT REPORTED HAVING AN AURA AND USED HIS MAGNET, WHICH THEN RESOLVED HIS AURA. NOTIFIED DR. YEAGER. NO ORDERS RECEIVED.
--- NOTE | 2016-07-24 19:18 | NUR ---
STATUS WEANED O2 CHARTED. CONTINUES TO HAVE SOA THAT IS WORSE WITH EXERTION. AMBULATES WITH A STANDBY ASSIST, USES THE WALKER. NO PRN'S GIVEN TODAY. CALLS FOR NEEDS.
[2016-07-25] VITALS (9 sets, daily range): BP systolic 104–121; BP diastolic 65–80; PULSE 62–100; RESP 16–20; TEMP 96.7–98.4; O2SAT 92–95
[2016-07-25] MEDS: LEVOFLOXACIN 750 MG TABLET PO SCH (05:10)
[2016-07-25 05:24] LABS: HCT - HEMATOCRIT 38.4 % (41-53); HGB - HEMOGLOBIN 13.1 GM/DL (13.5-17.5); IMMATURE GRANULOCYTE # (AUTO) 0.06 T/MM3 (0.00-0.03); IMMATURE GRANULOCYTE % (AUTO) 0.6 % (0.0-0.5); LYMPHOCYTES # (AUTO) 1.3 T/MM3 (1-4.8); LYMPHOCYTES % (AUTO) 12.6 % (23-45); MEAN CORPUSCULAR HGB 31.2 UUG (26-34); MEAN CORPUSCULAR HGB CONC(MCHC 34.1 GM/DL (31-37); MEAN CORPUSCULAR VOLUME 91.4 UM3 (80-100); MEAN PLATELET VOLUME 9.5 UM3 (9.4-12.4); MONOCYTES # (AUTO) 0.4 T/MM3 (0-0.8); MONOCYTES % (AUTO) 3.6 % (0-9.0); NEUTROPHILS #(AUTO)-ABSOLUTE 8.5 T/MM3 (1.8-7.7); NEUTROPHILS % (AUTO) 83.2 % (33-66); WBC - WHITE BLOOD COUNT 10.3 T/MM3 (4.5-11.0)
[2016-07-25 05:35] LABS: ANION GAP 9 MEQ/L (5-15); BUN/CREATININE RATIO 30 RATIO (6-26); CALCIUM 9.4 MG/DL (8.4-10.2); CHLORIDE 104 MEQ/L (98-107); CO2 - CARBON DIOXIDE 31 MEQ/L (22-30); CREATININE 0.6 MG/DL (0.8-1.5); GLOMERULAR FILTRATION RATE 136; GLUCOSE 125 MG/DL (75-110); POTASSIUM 4.1 MEQ/L (3.6-5); SODIUM 144 MEQ/L (134-144)
--- NOTE | 2016-07-25 06:25 | NUR ---
SHIFT SUMMARY PT ALERT AND ORIENTED X3, VITAL SIGNS STABLE ON 3L02 VIA NC. PT DENIES C/P,N/V. SOA INCREASES DURING AMBULATION. PT HAS HAD ADEQUATE URINE OUTPUT. WILL CONTINUE TO MONITOR.
[2016-07-25] MEDS: ALBUTEROL/IPRATROPIUM INHAL. 2.5mg-0.5mg/3ml Neb. AEROSOL SCH ×4 (07:14→19:43)
[2016-07-25] MEDS: TIOTROPIUM 18mcg/cap HANDIHALER ORAL INH SCH (09:28)
[2016-07-25] MEDS: ENOXAPARIN 40 MG/0.4 ML INJECTION SQ SCH (10:05)
[2016-07-25] MEDS: CALCIUM CARBONATE 600 MG TABLET PO SCH ×2 (10:06→21:16)
[2016-07-25] MEDS: PredniSONE 10 MG TABLET PO SCH ×2 (10:06→18:01)
[2016-07-25] MEDS: CHOLECALCIFEROL 1,000 UNIT TABLET PO SCH (10:07)
[2016-07-25] MEDS: LACOSAMIDE 100 MG TABLET PO SCH ×2 (10:07→21:16)
[2016-07-25] MEDS: PHENYTOIN 100 MG PO SCH ×2 (10:07→18:01)
[2016-07-25] MEDS: FOLIC ACID 1 MG TABLET PO SCH (10:07)
[2016-07-25] MEDS: CLORAZEPATE 7.5 MG PO SCH ×3 (10:08→21:16)
[2016-07-25] MEDS: ASPIRIN *EC* 81mg TABLET PO SCH (10:08)
--- NOTE | 2016-07-25 10:20 | NUR ---
WAQAR CM VISITED PT, EXPLAINED ROLE AND PROVIDED CONTACT INFORMATION. PT PLANS TO RETURN HOME TO [facility]. PT IS NOT WILLING TO GO TO HEALTHCARE FOR ANY NEEDS. [facility]. PT DENIES NEEDS AT THIS TIME. PT IS AWARE TO CONTACT CM IF NEEDS [facility].
--- NOTE | 2016-07-25 13:39 | NUR ---
CM CM LEFT VM FOR PT SPOUSE TO DISCUSS D/C NEEDS. PT WILL NEED TO HAVE A CONCENTRATOR THAT GOES TO 6 LITERS PER RT. CM AWAITING RETURN CALL.
--- NOTE | 2016-07-25 14:52 | NUR ---
CM CM SPOKE WITH PT OVER THE PHONE. PT/SPOUSE HAVE DECIDED TO USE [facility]PS. LYSSA FROM NPS IS AWARE. PT CURRENT HOME CONCENTRATOR IS A 5 LITER-DR YEAGER WILL HAVE EXERCISE OXYGEN RE DONE WITH PT ON 2 LITERS NOT ROOM AIR. SPOUSE IS AWARE TO CONTACT CM IF NEEDS ARISE.
--- NOTE | 2016-07-25 16:57 | PNPDOC ---
Subjective Date DATE: 07/25/16 TIME: 16:39 Subjective Mr. Shabazz reports that his breathing feels good today. He continues to have exertional dyspnea which he reports is normal and become short of breath if he talks very much. He has nasal congestion night. Has nonproductive cough-also chronic. He denies chest pain, nausea, or lightheadedness. He had seizure auras 3 times yesterday/overnight which he managed using his neurostimulator. Urinary frequency improved after discontinuation of IV fluids. Objective Vital Signs Vital signs Vital Signs Date Time Temp Pulse Resp B/P Pulse Ox O2 Delivery O2 Flow Rate FiO2 07/25/16 16:10 78 2.00 07/25/16 15:35 98.2 18 104/69 94 Nasal Cannula EXAM General-NAD, alert, talkative without respiratory distress HEENT-conjunctiva clear, oropharynx clear Lungs-respirations nonlabored, good airflow, faint wheezing at the right base late expiration Cardiac-regular rhythm, S1-S2 Abd-soft, nontender, bowel sounds present Ext-without edema Psych-calm, cooperative Telemetry Rhythm: Sinus Rhythm Height (Feet): 5 Height (Inches): 10.00 Weight (Kilograms): 70.200 Laboratory Laboratory Laboratory Tests 07/24/16 04:19 07/25/16 03:51 Laboratory Tests 07/24/16 04:19 07/25/16 03:51 Microbiology Microbiology Microbiology Date/Time Source Procedure Growth Status 07/24/16 05:43 Sputum Expectorated Sputum Gram Stain - Final Resulted 07/24/16 05:43 Sputum Expectorated Sputum Sputum Culture - Preliminary CULTURE INITIATED - RESULTS PENDING Resulted Assessment & Plan Problems: (1) Acute and chronic respiratory failure with hypoxia Status: Acute (2) Acute exacerbation of chronic obstructive pulmonary disease (COPD) Status: Acute Assessment & Plan: ordered continued Solu-Medrol along with a dose of Levaquin. Nebulized bronchodilators, continue home T ectropion. (3) Elevated lactic acid level Status: Acute (4) Chronic hypercapnic respiratory failure Status: Chronic Assessment & Plan: his pH is normal at this time, appears to be compensating. (5) Epilepsy Status: Chronic Assessment & Plan: Continue his home medications, Assessment Clinically improved, oxygenating adequately on 2 L at rest. Ambulatory oximetry earlier today demonstrated significant hypoxia requiring 6 L oxygen to recover however ambulation initiated on room air. Oximetry repeated this afternoon on 2 L with saturation dropping to 87-88% requiring increased oxygen of 3 L to maintain saturation above 90% while walking. This is been the patient's standard supplemental oxygen prior to admission, 2 L at rest increasing to 3 L with activities. Converted to oral prednisone starting this morning. Sputum culture pending, on Levaquin orally-day 3. Mucinex initiated twice a day per patient request for chronic chest congestion/ secretions. Accu-Cheks discontinued, minimal hyperglycemia following conversion to oral steroids. MiraLAX started for chronic constipation. Epilepsy stable on home regimen. Doing well, anticipate discharge soon. Plan/Intensity of Service Laboratory data reviewed, discussed with case management, nursing, and respiratory therapy DVT Prophylaxis: SCD'S Code Status Full Code Hospital Course Summary Disclaimer The hospital course summary below is not to be considered part of the above Progress Note. Hospital Course Summary Acute COPD exacerbation with hypoxia superimposed on chronic hypercarbic/ hypoxic respiratory failure. Clinically improving with treatment initiated in the emergency room and continued overnight. Continue IV steroids, breathing treatments, and Levaquin. Preceding cough and nasal symptoms for one week-respiratory viral panel to be obtained. Sputum culture to be obtained as well. Transfer out of ICU at this time. 07/24/16: Lanre. Assessment/Plan: Acute exacerbation of COPD and acute/chronic respiratory failure with hypoxia: * Overall, patient appears to be improving slowly. Persistent dyspnea with exertion. * Continue Levaquin for antimicrobial coverage of pulmonary pathogens. * Continue Solu-Medrol for pulmonary inflammation. May consider changing to oral prednisone as efficacy is similar. Will discuss with Dr. Edwards. * Continue breathing treatments for dyspnea. * Consider ambulatory pulse ox prior to discharge to ensure adequate oxygen supplementation at home. * Sputum culture - monitor sensitivities and adjust therapies as indicated. GRAM STAIN Final 07/24/16-08 RESULT MODERATE GRAM POSITIVE COCCI IN CLUSTERS MODERATE GRAM POSITIVE RODS FEW GRAM POSITIVE COCCI IN PAIRS FEW GRAM NEGATIVE RODS FEW GRAM NEGATIVE COCCI MODERATE EPITHELIAL CELLS FEW WHITE BLOOD CELLS Elevated lactic acid: * Trending down - 2.4 on admission - improved to 2.1 today. Chronic hypercapnic respiratory failure: * Continue to monitor closely. Epilepsy: * Continue home treatments and monitor closely for signs of seizures. Anemia: * New on 07/24/16 - mild with hemoglobin at 13.4. Patient asymptomatic. Continue to monitor closely. * Recheck CBC in AM to monitor blood counts. Hyperglycemia: * Most likely secondary to steroid effect. Monitor BGMs and sliding scale insulin as indicated. * Recheck BMP in AM to monitor electrolytes and renal function. Oxygen dependency-chronic: * Home base line use at 2L day/night and 3L with exertion. * Continue oxygen supplementation and wean to baseline as able. 07/25 Clinically improved, oxygenating adequately on 2 L at rest. Ambulatory oximetry earlier today demonstrated significant hypoxia requiring 6 L oxygen to recover however ambulation initiated on room air. Oximetry repeated this afternoon on 2 L with saturation dropping to 87-88% requiring increased oxygen of 3 L to maintain saturation above 90% while walking. This is been the patient's standard supplemental oxygen prior to admission, 2 L at rest increasing to 3 L with activities. Converted to oral prednisone starting this morning. Sputum culture pending, on Levaquin orally-day 3. Mucinex initiated twice a day per patient request for chronic chest congestion/ secretions. Accu-Cheks discontinued, minimal hyperglycemia following conversion to oral steroids. MiraLAX started for chronic constipation. Epilepsy stable on home regimen. Doing well, anticipate discharge soon. DORA EDWARDS MD Jul 25, 2016 16:56
[2016-07-25] MEDS: POLYETHYL.GLYCOL 3350 PACKET 17gm PO SCH (18:01)
--- NOTE | 2016-07-25 18:52 | NUR ---
status Pt A/O x3, V/S stable on RA. Pt ambulating well in room with 1x assist. Did O2 ambulation and increased to 3L to maintain 90%, pt states this is his baseline at home. Pt denies pain at this time and no PRN meds given. Pt eating well, upset he is on a ADA diet and states he does not have DM2.
[2016-07-25] MEDS: GUAIFENESIN LA 600 MG TABLET PO SCH (21:17)
[2016-07-26] VITALS: BP 101/68; PULSE 71; RESP 20; TEMP 98.1; O2SAT 95
--- NOTE | 2016-07-26 04:11 | NUR ---
SHIFT SUMMARY PT A/O X3. UP WITH STAND BY ASSIST. PT MOVES FAST WHEN STANDING UP OUT OF BED. NOTED GAIT IS STEADY. ENCOURAGED PT TO SLOW DOWN AND LOOK FOR THE 02 TUBING WHEN WALKING. PT WAS PLEASANT WHEN VERBALIZED UNDERSTANDING. V.S. ARE WITHIN NORMAL LIMITS. DENIES CHEST PAIN OR SOA AT REST OR WITH ACTIVITIES. REQUESTED HIS HS MEDICATIONS TO BE GIVEN BETWEEN 21-2200. AT MID NIGHT PT STATES HE WAS NOT SLEEPING WELL. DENIES NEEDS OR DISCOMFORT. CALL LIGHT WITHIN REACH.
[2016-07-26] MEDS: LEVOFLOXACIN 750 MG TABLET PO SCH (05:45)
[2016-07-26 07:01] VITALS: O2SAT 94
[2016-07-26] MEDS: ALBUTEROL/IPRATROPIUM INHAL. 2.5mg-0.5mg/3ml Neb. AEROSOL SCH ×2 (07:01→11:33)
[2016-07-26 07:28] VITALS: BP 118/70; PULSE 74; RESP 20; TEMP 97.8; O2SAT 90
[2016-07-26] MEDS: PredniSONE 10 MG TABLET PO SCH ×2 (09:01→13:00)
[2016-07-26] MEDS: CHOLECALCIFEROL 1,000 UNIT TABLET PO SCH (09:01)
[2016-07-26] MEDS: PHENYTOIN 100 MG PO SCH (09:01)
[2016-07-26] MEDS: LACOSAMIDE 100 MG TABLET PO SCH (09:01)
[2016-07-26] MEDS: POLYETHYL.GLYCOL 3350 PACKET 17gm PO SCH (09:01)
[2016-07-26] MEDS: CLORAZEPATE 7.5 MG PO SCH (09:02)
[2016-07-26] MEDS: FOLIC ACID 1 MG TABLET PO SCH (09:02)
[2016-07-26] MEDS: GUAIFENESIN LA 600 MG TABLET PO SCH (09:02)
[2016-07-26] MEDS: ASPIRIN *EC* 81mg TABLET PO SCH (09:02)
[2016-07-26] MEDS: CALCIUM CARBONATE 600 MG TABLET PO SCH (09:02)
[2016-07-26] MEDS: ENOXAPARIN 40 MG/0.4 ML INJECTION SQ SCH (09:12)
[2016-07-26 09:50] VITALS: PULSE 74; RESP 20
[2016-07-26 11:33] VITALS: O2SAT 94
--- NOTE | 2016-07-26 11:34 | NUR ---
WAQAR ZAVALETA IN TO VISIT PATIENT, HE IS A&O. IS NOT IN ROOM AT THIS TIME. DR YEAGER PLANS TO DISCHARGE TODAY, HAD BEEN IN THE PROCESS OF SETTING UP [facility] AT [facility] OF ADMIT BUT PT HAS RECOMMENDED HH PT FOR STRENGTHENING. I SPOKE WITH PATIENT ABOUT [facility] AND HE WOULD LIKE TO VISIT WITH HIS BEFORE AGREEING TO SERVICES, THEY WILL CALL WHEN SHE COMES BACK. PATIENT ALSO WAS REQUESTING A 4 WHEELED WALKER WITH SEAT, HE WILL GET [facility]OUGH [facility] BUT DR YEAGER WROTE A RX TO ASSIST IN GETTING WALKER.
[2016-07-26] MEDS ORDERED: PRED20TA PO (11:45)
[2016-07-26] MEDS ORDERED: LEVO750T20 PO (11:45)
[2016-07-26] MEDS ORDERED: FLUT9.9S NAS (11:46)
--- NOTE | 2016-07-26 12:43 | NUR ---
CM PATIENT AND ARE IN AGREEMENT TO HAVE [facility] COM[facility] AT DISCHARGE, SHE WILL CONTINUE TO WORK WITH [facility] TO [facility] LATER. PRESCRIPTION GIVEN TO FOR THE 4 WHEELED WALKER, THEY WILL OBTAIN [facility]OUGH [facility].
[2016-07-26 12:44] VITALS: BP 120/63; PULSE 70; TEMP 96.4; O2SAT 93
--- NOTE | 2016-07-26 13:01 | NUR ---
DISMISSAL VSS. 2L NC. DISMISSAL PAPERWORK DISCUSSED WITH PT AND . VERBALIZED UNDERSTANDING. THREE SCRIPTS SENT WITH PT AND . PATIENT TAKEN TO FRONT ENTRANCE VIA WHEELCHAIR. TAKEN HOME VIA PERSONAL VEHICLE BY .
--- NOTE | 2016-07-26 14:12 | DSPDOC ---
General Date Date DATE: 07/26/16 TIME: 13:52 Attending Physician Kanika Ewdards MD Admitting Physician Kanika Edwards MD Consulting Physician Admitting Diagnosis acute hypoxic resp failure, acute exac COPD Discharge Diagnosis 1. Acute on chronic hypoxic and hypercarbic respiratory failure 2. Acute exacerbation COPD 3. Epilepsy 4. Bronchitis 5. Elevated lactic acid due to hypoxia 6. Steroid-induced hyperglycemia, resolved 7. Normocytic anemia, mild Procedures Ambulatory oximetry 07/25 demonstrated significant hypoxia requiring 6 L oxygen to recover however ambulation initiated on room air. Oximetry repeated later on 2 L demonstrated saturation dropping to 87-88% requiring increased oxygen of 3 L to maintain saturation above 90% while walking. This is been the patient's standard supplemental oxygen prior to admission, 2 L at rest increasing to 3 L with activities. Laboratory Laboratory Tests Test 07/25/16 03:51 07/25/16 05:17 07/25/16 11:14 White Blood Count 10.3T/MM3 (4.5-11.0) Red Blood Count 4.20M/MM3 (4.50-5.90) Hemoglobin 13.1GM/DL (13.5-17.5) Hematocrit 38.4% (41-53) Mean Corpuscular Volume 91.4UM3 (80-100) Mean Corpuscular Hemoglobin 31.2UUG (26-34) Mean Corpuscular Hemoglobin Concent 34.1GM/DL (31-37) RDW Standard Deviation 42.4FL (36.9-50.2) Platelet Count 224T/MM3 (130-400) Mean Platelet Volume 9.5UM3 (9.4-12.4) Immature Granulocyte % (Auto) 0.6% (0.0-0.5) Neutrophils (%) (Auto) 83.2% (33-66) Lymphocytes (%) (Auto) 12.6% (23-45) Monocytes (%) (Auto) 3.6% (0-9.0) Eosinophils (%) (Auto) 0.0% (0-4) Basophils (%) (Auto) 0.0% (0-2) Absolute Immature Granulocyte (auto 0.06T/MM3 (0.00-0.03) Absolute Neutrophils (auto) 8.5T/MM3 (1.8-7.7) Absolute Lymphocytes (auto) 1.3T/MM3 (1-4.8) Absolute Monocytes (auto) 0.4T/MM3 (0-0.8) Absolute Eosinophils (auto) 0.0T/MM3 (0-0.5) Absolute Basophils (auto) 0.0T/MM3 (0-0.2) Turbidity < 20 (0-20) Sodium Level 144MEQ/L (134-144) Potassium Level 4.1MEQ/L (3.6-5) Chloride Level 104MEQ/L (98-107) Carbon Dioxide Level 31MEQ/L (22-30) Anion Gap 9MEQ/L (5-15) Blood Urea Nitrogen 18.0MG/DL (9-20) Creatinine 0.6MG/DL (0.8-1.5) Glomerular Filtration Rate Calc 136 BUN/Creatinine Ratio 30RATIO (6-26) Glucose Level 125MG/DL (75-110) Calculated Osmolality 280MOSM/KG (261-280) Calcium Level 9.4MG/DL (8.4-10.2) Icterus Index < 2 (0-7) Chemistry Specimen Hemolysis < 15 (0-25) Glucometer 109mg/dL (75-110) 126mg/dL (75-110) On date of admission (07/23) white count 7.2, hemoglobin 15.2, bicarbonate 34, creatinine 0.8, liver enzymes normal except minor elevation of alkaline phosphatase patient 130. Initial lactic acid 2.4 and procalcitonin <0.05 ABG on admission 7.34/63/119/34 98% on 3L Microbiology Microbiology Date/Time Source Procedure Growth Status 07/24/16 05:43 Sputum Expectorated Sputum Gram Stain - MODERATE GRAM POSITIVE COCCI IN CLUSTERS MODERATE GRAM POSITIVE RODS FEW GRAM POSITIVE COCCI IN PAIRS FEW GRAM NEGATIVE RODS FEW GRAM NEGATIVE COCCI MODERATE EPITHELIAL CELLS FEW WHITE BLOOD CELLS Resulted 07/24/16 05:43 Sputum Expectorated Sputum Sputum Culture - Preliminary CULTURE INITIATED - RESULTS PENDING Resulted Respiratory viral panel negative Radiology Chest x-ray on admission demonstrated changes consistent with severe emphysema but no acute cardiopulmonary disease History of Present Illness Mr. Shabazz is a 64-year-old male who describes increasing exertional dyspnea for a couple of months. He has known underlying COPD and is chronically managed on Spiriva and a LABA. Over the past week has had increased sputum production ( white) and rhinorrhea. No one else at home has been ill. 24 hours prior to hospitalization he described feeling hot and cold alternately but denies having fever. He awoke from sleep about 3 AM this morning acutely dyspneic and unable to breathe. He attempted to self administer breathing treatment with no relief and EMS was activated by his . When they arrived the patient was in a tripod position, pale, diaphoretic, and unable to speak. He was described as being in extreme respiratory distress with absent breath sounds. He was treated with 2 [id number] breathing treatments and 125 mg of Solu-Medrol prior to transfer her to the emergency room. Oxygen saturation was initially 86% on 3 L supplemental oxygen. Additional breathing treatments were administered in the emergency room and chest x-ray revealed no acute cardiopulmonary process and bilateral wheezing was described on examination. He was subsequently admitted for see his management of COPD exacerbation to the ICU. Patient reports increased use of rescue inhaler in the week prior to hospitalization. He denied preceding chest pain, palpitations, or edema. At the time of my evaluation in the ICU this morning he was breathing fairly comfortably in lying flat in bed. Past history, social history, family history, and review of systems as noted by Dr. Zendejas with the following additions: Patient reports having a brain surgery many years ago that was related to surgery seizures but can't identify the nature of the procedure otherwise. He underwent implantation of a cranial nerve stimulator pulse generator in July [address] Hai Dixon at [facility]. He discontinued tobacco in June 2015 after smoking 1-2 packs per day for 51 years. Father of unknown type of cancer. Comprehensive review of systems is negative outside of acute symptoms except patient reporting some minor tinnitus intermittently. Hospital Course Mr. Shabazz was admitted to the intensive care unit with acute on chronic hypoxic respiratory failure with chronic hypercarbia. He was treated with high- dose IV steroids in conjunction with Levaquin and aggressive breathing treatments. Respiratory viral panel was negative and sputum suggested normal keyur although culture was pending at discharge. Symptoms stabilized relatively quickly and he was transferred out of the ICU within 24 hours. He converted to oral steroids on 07/25 and remained stable. He initially required 6 L of supplemental oxygen but titrated down to 2 L of oxygen at rest with 3 L with activities prior to discharge-this is been his standard oxygen demand previously. Mild hyperglycemia was present on IV steroids but subsided following conversion to prednisone. Further outpatient management of blood sugar is not needed. Following hydration hemoglobin dropped slightly suggesting dehydration on admission minor anemia was present with normocytic indices, further evaluation will be deferred to outpatient physician. The patient describes several auras typical of seizures which he managed with his neurostimulator. He complained of chronic nasal congestion for which nasal steroids were initiated. Mucinex was recommended for chest congestion as needed. On 07/26 the patient reported feeling at baseline. He continued to have some nasal congestion but denied sputum production or excess dyspnea. He was ambulating in the halls with minimal difficulty for short distances. He felt stable for discharge home. Respirations were nonlabored and breath sounds clear although diminished throughout. There was no wheezing this morning and no crackles present. Cardiac exam regular. Discharge medications reviewed with the patient and his . Stable for discharge. Follow-up with his managing physician at the [facility] is recommended within 1-2 weeks. Patient was provided with a prescription for four-wheel walker with a seat due to limited exertional tolerance due to advanced COPD. The patient additionally will have home health on return home to work on endurance and medical stabilization. >30 minutes spent on patient care and discharge care coordination today on the date of discharge. -- Problems: (1) Acute and chronic respiratory failure with hypoxia Status: Acute (2) Acute exacerbation of chronic obstructive pulmonary disease (COPD) Status: Acute Assessment & Plan: ordered continued Solu-Medrol along with a dose of Levaquin. Nebulized bronchodilators, continue home T ectropion. (3) Elevated lactic acid level Status: Acute (4) Chronic hypercapnic respiratory failure Status: Chronic Assessment & Plan: his pH is normal at this time, appears to be compensating. (5) Epilepsy Status: Chronic Assessment & Plan: Continue his home medications, (6) Bronchitis Status: Acute (7) Hyperglycemia Status: Resolved Assessment & Plan: Secondary to IV steroids (8) Normocytic anemia Status: Chronic Code Status Full Code Home Meds Active Scripts Fluticasone Propionate (Flonase Allergy Relief 50 mcg/actuation Nasal) 9.9 Ml [email or web address], 1 SPRAY MARTI DAILY for 30 Days Prov:KANIKA EDWARDS MD 07/26/16 Prednisone (Prednisone) 20 Mg Tablet, 40 MG PO WB for 5 Days, #10 TAB Take 2 (20 mg) tablets, by mouth, once a day with breakfast. Prov:KANIKA EDWARDS MD 07/26/16 Levofloxacin (Levaquin) 750 Mg Tablet, 750 MG PO Q24H, #1 TAB Prov:KANIKA EDWARDS MD 07/26/16 Reported Medications Clorazepate Dipotassium (Clorazepate Dipotassium) 7.5 Mg Tablet, 26.25 MG PO HS 07/23/16 Tiotropium [place] (Spiriva Respimat) 4 Gm Mist.inhal, 2 PUFF ORAL INH DAILY 02/09/16 Ranitidine HCl (Ranitidine HCl) 150 Mg Tablet, 150 MG PO BID Y for ACID REFLUX 02/09/16 Phenytoin Sodium Extended (Phenytoin Sodium Extended) 100 Mg Capsule, 200 MG PO BID 02/09/16 Olodaterol HCl (Striverdi Respimat) 4 Gm Mist.inhal, 2 PUFF INH DAILY 02/09/16 Lactose-Free Food (Boost Plus) 237 Ml Liquid, 237 ML PO BID 02/09/16 Lacosamide (Vimpat) 50 Mg Tablet, 100 MG PO BID 02/09/16 Folic Acid (Folic Acid) 1 Mg Tablet, 1 MG PO DAILY 02/09/16 Clorazepate Dipotassium (Clorazepate Dipotassium) 7.5 Mg Tablet, 22.5 MG PO [id number] 02/09/16 Cholecalciferol (Vitamin D3) 1,000 Unit Tablet, 2000 UNIT PO DAILY 02/09/16 Calcium Carbonate (Calcium Carbonate) 650 Mg Tablet, 650 MG PO BID 02/09/16 Aspirin *EC* (Aspirin EC) 81 Mg Tablet.dr, 81 MG PO DAILY 02/09/16 Albuterol Sulfate (Albuterol Sulfate) 1.25 Mg/3 Ml Vial.neb, 1 VIAL AEROSOL Q4HR Y for PRN ORDERS 02/09/16 Albuterol Sulfate (Proventil HFA 90 mcg/actuation) 200 Puff/6.7 G Inha, 2 PUFF INH Q6H Y for SHORTNESS OF AIR/WHEEZING 02/09/16 Discontinued Reported Medications Olodaterol HCl (Striverdi Respimat) 4 Gm Mist.inhal, 2 PUFF INH DAILY 07/23/16 Face to Face Encounter I met with patient on the day of dismissal and discussed follow up appointments , medications, and safety plan. Discharge Disposition Home with home health Documentation Requirements Documenting Diagnosis Anemia Anemia Anemia Acuity: Chronic KANIKA EDWARDS MD Jul 26, 2016 14:08
[2016-07-26] MEDS ORDERED: FLUTICASONE NASAL SPRAY 50 MCG EA NOSTRIL SCH (21:00)
== END 2016-07-26 14:08 | disposition home health service (06) | DRG 190 ==
LOC: ED 04:22 → CCU 05:15 → SRG 15:55 → MED 17:10
PROVIDERS: ADMIT Pediatrics; ATTEND Internal Medicine
DX: J44.1 Chronic obstructive pulmonary disease with (acute) exacerbation (principal); J96.01 Acute respiratory failure with hypoxia; J96.12 Chronic respiratory failure with hypercapnia; D64.9 Anemia, unspecified; J40 Bronchitis, not specified as acute or chronic; R73.9 Hyperglycemia, unspecified; T38.0X5A Adverse effect of glucocorticoids and synthetic analogues, initial encounter; G40.909 Epilepsy, unspecified, not intractable, without status epilepticus; K21.9 Gastro-esophageal reflux disease without esophagitis; Z79.82 Long term (current) use of aspirin; Z95.810 Presence of automatic (implantable) cardiac defibrillator; Z87.891 Personal history of nicotine dependence
CPT/HCPCS: 36415; 80048; 80053; 80069; 82803; 82948; 83605; 83735; 84145; 84484; 85025; 87070; 87205; 87486; 87581; 87633; 87798; 93005; 94640; 94664; 94760; 94761